=== PATIENT | male | born 1955 | race Caucasian/White ===

== ENCOUNTER 2016-11-19 10:30 | Inpatient (IN) | payer OTHER ==
[~2016-11-19] VITALS: Ht 185.4 cm; Wt 140.2 kg
[2016-11-20] MEDS ORDERED: TRAM150C6 PO (07:43)
[2016-11-20] MEDS ORDERED: TRIL135C PO (07:43)
[2016-11-20] MEDS ORDERED: TOPI1TAB97 PO (07:43)
[2016-11-20] MEDS ORDERED: OMEG1CAP53 PO (07:43)
[2016-11-20] MEDS ORDERED: VESI10TA PO (07:43)
[2016-11-20] MEDS ORDERED: LORA-474 PO (07:43)
[2016-11-20] MEDS ORDERED: CELE200C PO (07:43)
[2016-11-20] MEDS ORDERED: CENTTAB PO (07:43)
[2016-11-20] MEDS ORDERED: curamed (07:43)
[2016-11-20] MEDS ORDERED: LIDO5DIS35 TOPICAL (07:43)
[2016-11-20] MEDS ORDERED: LEXA20TA PO (07:43)
[2016-11-20] MEDS ORDERED: CHOL1CHW5 CHEW (07:43)
[2016-11-20] MEDS ORDERED: ARIC10TA PO (07:43)
[2016-11-20] MEDS ORDERED: MILK1CAP PO (07:43)
[2016-11-20] MEDS ORDERED: BENA25CA4 PO (07:43)
[2016-11-20] MEDS ORDERED: ZETI10TA5 PO (07:43)
[2016-11-20] MEDS ORDERED: EXAL8TAB PO (07:43)
[2016-11-20] MEDS ORDERED: [UNRECOGNIZED DRUG - OTHER] (07:43)
[2016-11-20] MEDS ORDERED: OXYC-433 PO (07:43)
[2016-11-20] MEDS ORDERED: LYRI150C PO (07:43)
[2016-11-20] MEDS ORDERED: PRIL20CA9 PO (07:43)
[2016-11-20] MEDS ORDERED: MELA3TAB PO (07:49)
[2016-11-20] MEDS ORDERED: META0.52 (07:49)
[2016-11-24] MEDS ORDERED: OSTETAB3 PO (09:36)
[2016-11-24] MEDS ORDERED: ESTE500T7 PO (09:37)
[2016-12-05] MEDS ORDERED: [UNRECOGNIZED DRUG - CODE] TOPICAL (11:03)
[2016-12-05] MEDS ORDERED: LEVO75TA3 PO (11:03)
[2016-12-05] MEDS ORDERED: NAME10TA PO (11:03)
[2016-12-15] MEDS ORDERED: ceFAZolin 2 GM PREMIX 50 ML ONE (05:45)
[2016-12-15] MEDS: SODIUM CHLORID 0.9% 500 ML IV SCH ×2 (06:00→22:40)
[2016-12-15] MEDS: LACTATED RINGER'S 1000 ML IV SCH (06:00)
[2016-12-15] MEDS ORDERED: OMEG1CAP53 PO (06:14)
[2016-12-15] MEDS ORDERED: HYDR-3583 PO (06:14)
[2016-12-15] MEDS ORDERED: TRIL135C PO (06:14)
[2016-12-15] MEDS ORDERED: LEVO.075 PO (06:14)
[2016-12-15] MEDS: CHLORHEXIDINE GLUCONATE 4% SOLN 120 ML BTL TOP SCH (06:15)
[2016-12-15] MEDS ORDERED: ceFAZolin 2 GM PREMIX 50 ML IV SCH (06:15)
[2016-12-15] MEDS ORDERED: INSULIN HUMAN REGULAR 1,000 UNITS/10 ML VIAL SQ PRN (06:15)
[2016-12-15] MEDS ORDERED: METOPROLOL TARTRATE 25 MG TAB PO PRN (06:15)
[2016-12-15] MEDS ORDERED: CENTTAB PO (06:21)
[2016-12-15] MEDS ORDERED: ESTE500T PO (06:21)
[2016-12-15] MEDS ORDERED: VITA2000 PO (06:21)
[2016-12-15] MEDS ORDERED: META0.52 PO (06:21)
[2016-12-15 06:24] VITALS: BP 157/90; PULSE 59; RESP 20; TEMP 97.9; O2SAT 94
[2016-12-15] MEDS ORDERED: MIDAZOLAM HCL 5 MG/5 ML VIAL ONE (06:45)
[2016-12-15] MEDS ORDERED: ACETAMINOPHEN 1000 MG/100 ML VIAL IV ONE (06:48)
[2016-12-15] MEDS ORDERED: FAMOTIDINE 20 MG/2 ML VIAL ONE (06:48)
[2016-12-15] MEDS ORDERED: fentaNYL CITRATE 250 MCG/5 ML AMP ONE (06:49)
[2016-12-15] MEDS ORDERED: HYDROmorphone HCL PF 2 MG/ML VIAL ONE (06:49)
[2016-12-15] MEDS ORDERED: DEXAMETHASONE SOD PHOS 4 MG/ML VIAL ONE (06:49)
[2016-12-15] MEDS: TRANEXAMIC ACID IV SCH ×2 (07:00→07:29)
[2016-12-15] MEDS: SODIUM CHLORIDE 0.9% IV SCH ×2 (07:00→07:29)
[2016-12-15] MEDS: EXPAREL PERI-ARTICULAR INJECTION (TOTAL VOL. 100 ML) P-ARTICULR SCH ×4 (07:00→07:39)
[2016-12-15] MEDS ORDERED: KETAMINE HCL 500 MG/5 ML VIAL ONE (07:09)
[2016-12-15] MEDS ORDERED: GENTAMICIN SULFATE 80 MG/2 ML VIAL IRRIGATION ONE (07:39)
[2016-12-15] MEDS ORDERED: SODIUM CHLORIDE 0.9% IV SCH ×2 (10:00→11:00)
[2016-12-15] MEDS ORDERED: TRANEXAMIC ACID IV SCH ×2 (10:00→11:00)
[2016-12-15] MEDS ORDERED: CAPSAICIN TOPICAL PRN (11:00)
[2016-12-15] MEDS ORDERED: Post-op Orders (for Pharmacy) MISC XX ONE (11:00)
[2016-12-15] MEDS ORDERED: MENTHOL TOPICAL PRN (11:00)
[2016-12-15] MEDS ORDERED: LIDOCAINE TOPICAL PRN (11:00)
[2016-12-15] MEDS ORDERED: SODIUM CHLORIDE 0.9% FLUSH 5 ML FLUSH IVF PRN (11:00)
[2016-12-15] MEDS ORDERED: ZOLPIDEM TARTRATE 5 MG TAB PO PRN (11:00)
[2016-12-15] MEDS ORDERED: [UNRECOGNIZED DRUG - OTHER] TOPICAL PRN (11:00)
[2016-12-15] MEDS ORDERED: ONDANSETRON HCL 4 MG/2 ML VIAL IVP PRN (11:00)
[2016-12-15] MEDS ORDERED: MAGNESIUM HYDROXIDE SUSP 30 ML CUP PO PRN (11:00)
[2016-12-15] MEDS ORDERED: MORPHINE SULFATE 4 MG/ML INJ IV PUSH PRN (11:00)
[2016-12-15] MEDS ORDERED: ACETAMINOPHEN/HYDROcodone 325 MG/7.5 MG TAB PO PRN (11:00)
[2016-12-15] MEDS ORDERED: METHYL SALICYLATE TOPICAL PRN (11:00)
[2016-12-15] MEDS ORDERED: *morphine SULFATE 8 MG/ML PERIprocedure ONLY ONE ×3 (11:19→11:29)
[2016-12-15] MEDS: LACTATED RINGER'S 1000 ML INJ 1,000 ML IV SCH ×2 (11:21→23:56)
[2016-12-15] MEDS: KETOROLAC TROMETHAMINE 30 MG/ML (IVP) VIAL IVP SCH ×3 (11:32→23:56)
[2016-12-15] MEDS ORDERED: DO NOT ADM ANY ANTICOAGULANT DRUGS XX PRN (11:45)
[2016-12-15 12:10] VITALS: BP 122/78; PULSE 93; RESP 18; TEMP 96; O2SAT 94
[2016-12-15] MEDS ORDERED: NEOSTIGMINE 3 MG/3 ML SYR IV ONE (12:27)
[2016-12-15] MEDS ORDERED: PROPOFOL 200 MG/20 ML AMP IV ONE (12:27)
[2016-12-15] MEDS ORDERED: ONDANSETRON HCL 4 MG/2 ML VIAL IV PUSH ONE (12:27)
[2016-12-15] MEDS ORDERED: LACTATED RINGER'S 1000 ML INJ 1,000 ML IV ONE (12:27)
--- NOTE | 2016-12-15 12:30 | RADRPT ---
EXAM DATE/TIME: 12/15/2016 11:01 [facility] COMPARISON: No previous studies available for comparison. INDICATIONS : Post op left knee replacement surgery MEDICAL HISTORY : None. SURGICAL HISTORY : None. ENCOUNTER: Initial ACUITY: 1 day PAIN SCORE: Non-responsive. LOCATION: Left knee FINDINGS: AP and lateral views of the knee following arthroplasty reveals a prosthesis in anatomic alignment. F racture is not appreciated. Surgical drain is evident CONCLUSION: Status post total knee arthroplasty. Barak Rascon MD FACR Board Certified Radiologist. This report was verified electronically.
[2016-12-15] MEDS ORDERED: BUPIVACAINE HCL PF 0.5% 30 ML VIAL NB ONE (12:33)
[2016-12-15] MEDS: ACETAMINOPHEN/HYDROcodone 325 MG/7.5 MG TAB PO PRN ×2 (13:37→17:39)
[2016-12-15] MEDS: PREGABALIN 75 MG CAP PO SCH ×3 (13:38→23:56)
--- NOTE | 2016-12-15 15:12 | PD.CONS ---
HPI Service [facility] Consult Requested By Dr. 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 Patient has history of OA, was admitted for elective surgery. Patient underwent left total knee arthroplasty per Dr. Mccarty. Hospitalist services are requested for medical management. Patient awakes to voice, indicates pain is well-controlled at this time. Denies any shortness of breath , no wheezing. Patient is not on any oxygen at home, indicates he follows up regularly with Dr. Savage. Occasionally uses inhaler for wheezing. Patient's oncologist is Dr. Cardenas, HL is in remission. He recently had port removed. ( Alana Hope) Review of Systems Constitutional: DENIES: Diaphoretic episodes, Fatigue, Fever, Weight gain, Weight loss, Chills, Dizziness, Change in appetite, Night Sweats Endocrine: DENIES: Heat/cold intolerance, Polydipsia, Polyuria, Polyphagia Ears, nose, mouth, throat: DENIES: Tinnitus, Hearing loss, Vertigo, Nasal discharge, Oral lesions, Throat pain, Hoarseness, Ear Pain, Running Nose, Epistaxis, Sinus Pain, Toothache, Odynophagia Cardiovascular: DENIES: Chest pain, Palpitations, Syncope, Dyspnea on Exertion , PND, Lower Extremity Edema, Orthopnea, Claudication Gastrointestinal: DENIES: Abdominal pain, Black stools, Bloody stools, Constipation, Diarrhea, Nausea, Vomiting, Difficulty Swallowing, Anorexia Genitourinary: DENIES: Sexual dysfunction, Urinary frequency, Urinary incontinence, Urgency, Hematuria, Dysuria, Nocturia, Penile Discharge, Testicular Pain, Testicular Swelling Musculoskeletal: COMPLAINS OF: Joint pain, DENIES: Muscle aches, Stiffness, Joint Swelling, Back pain, Neck pain Integumentary: DENIES: Abnormal pigmentation, Nail changes, Pruritus, Rash Hematologic/lymphatic: DENIES: Bruising, Lymphadenopathy Immunologic/allergic: DENIES: Eczema, Urticaria Neurologic: DENIES: Abnormal gait, Headache, Localized weakness, Paresthesias, Seizures, Speech Problems, Tremor, Poor Balance Psychiatric: DENIES: Anxiety, Confusion, Mood changes, Depression, Hallucinations, Agitation, Suicidal Ideation, Homicidal Ideation, Delusions ( Alana Hope) Past Family Social History Past Medical History Hodgkin's lymphoma, status post chemotherapy and stem cell transplant 2007 at [facility] History of hypertension, no longer taking medications as blood pressure has been stable Hyperlipidemia 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 Savage Prior tobacco abuse Peripheral neuropathy Cognitive deficits, secondary to chemotherapy Depression Past Surgical History Lymph node biopsy 2006 Right groin biopsy in 2011 Right carpal tunnel release 2013 Port placement and subsequent removal Hernia surgery in 1983 Colonoscopy Reported Medications Reported Meds & Active Scripts Active Reported Metamucil (Psyllium) 520 Mg Cap 2 Cap PO DAILY Vitamin D3 (Cholecalciferol) 2,000 Unit Cap 2,000 Units PO BID Centrum Silver (Multiple Vitamins W/ Minerals) 1 Tab 1 Tab PO DAILY Trilipix (Choline Fenofibrate DR) 135 Mg Capdr 135 Mg PO DAILY Lovaza (Huvmz-1-Wrud Ethyl Esters) 1 Gm Cap 2 Gm PO BID Synthroid (Levothyroxine Sodium) 75 Mcg Tab 75 Mcg PO DAILY Hydrocodone-Acetaminophen 10-325 mg Tab 1 Tab PO Q6H PRN Terocin Topical (Tyhf-Wwffxyuoy-Rosljxl-Methyl Aamir Topical) 2.5-0.025-10-25 % Lot 1 Applic TOPICAL DIRECTED PRN Namenda (Memantine) 10 Mg Tab 10 Mg PO BID Osteo Bi-Flex Regular Strength (Glucosamine-Chondroitin) 250-200 Tab 2 Tab PO DAILY Melatonin 3 Mg Tab 3 Mg PO HS Lidoderm Patch 12 HR (Lidocaine) 5% Patch 1-2 Patch TOPICAL DAILY Remove patch after 12 hours Vesicare (Solifenacin) 10 Mg Tab 10 Mg PO HS Benadryl Allergy (Diphenhydramine HCl) 25 Mg Cap 25 Mg PO HS Ativan (Lorazepam) 1 Mg Tab 1 Mg PO HS Lexapro (Escitalopram Oxalate) 20 Mg Tab 20 Mg PO DAILY Aricept (Donepezil) 10 Mg Tab 10 Mg PO HS Lyrica (Pregabalin) 150 Mg Cap 150 Mg PO Q6HR Prilosec (Omeprazole) 20 Mg Cap 20 Mg PO BID Zetia (Ezetimibe) 10 Mg Tab 10 Mg PO DAILY Celebrex (Celecoxib) 200 Mg Cap 200 Mg PO DAILY Topiramate 25 Mg Tab 25 Mg PO BID Tramadol ER 24 HR (Tramadol HCl) 150 Mg Caper 150 Mg PO BID Exalgo (Hydromorphone HCl) 8 Mg Tab 8 Mg PO DAILY (Alana Hope) Allergies: Coded Allergies: Bleomycin (Verified Allergy, Severe, PULMONARY TOXICITY, 12/05/16) Active Ordered Medications Inpatient Medications Acetaminophen/ Hydrocodone Bitart ([place] 7.5-325 Mg) 2 tab Q4H PRN PO PAIN SCALE 5 TO 10 Last administered on 12/15/16 13:37; Start 12/15/16 at 11:00 Bupivacaine Liposome 20 ml/ Sodium Chloride 100 ml @ 200 mls/hr ONCE P- ARTICULR Last administered on 12/15/16 07:39; Start 12/15/16 at 07:00; Stop at 13:00; Status DC Cefazolin Sodium/ Dextrose 50 ml @ 100 mls/hr [employer] [employer] IV ; Start 12/15/16 at 06:15; Stop 12/18/16 at 06:14 Cefazolin Sodium/ Sodium Chloride (Ancef Inj/NS Inj) 100 ml @ 200 mls/hr Q6H IV Last administered on 12/15/16 11:45; Start 12/15/16 at 12:00; Stop at 00:29 Celecoxib (CeleBREX) 200 mg DAILY PO ; Start 12/16/16 at 09:00 Chlorhexidine Gluconate 1 applic 1 applic ONCE TOP Last administered on 06:15; Start 12/15/16 at 06:15; Stop 12/18/16 at 06:14 Cholecalciferol (Vitamin D3) 2,000 units BID PO ; Start 12/15/16 at 21:00 Diphenhydramine HCl (Benadryl) 25 mg HS PO ; Start 12/15/16 at 21:00 Docusate Sodium (Colace) 100 mg BID PO ; Start 12/16/16 at 21:00 Donepezil HCl (Aricept) 10 mg HS PO ; Start 12/15/16 at 21:00 Escitalopram Oxalate (Lexapro) 20 mg DAILY PO ; Start 12/16/16 at 09:00 EZETIMIBE (Zetia) 10 mg DAILY PO ; Start 12/16/16 at 09:00 Fenofibrate (Tricor) 145 mg DAILY PO ; Start 12/16/16 at 09:00 Insulin Human Regular (NovoLIN R INJ) See Protocol Table ... UNSCH X1 PRN SQ SEE PROTOCOL; Start 12/15/16 at 06:15; Stop 12/16/16 at 06:14 IV Flush (NS Flush) 2 ml UNSCH PRN IVF FLUSH AFTER USING IV ACCESS; Start 12/15 at 11:00 IV Flush 2 ml 2 ml BID IVF ; Start 12/15/16 at 21:00 Ketorolac Tromethamine 15 mg 15 mg Q6H IVP Last administered on 12/15/16t 11:32 ; Start 12/15/16 at 12:00; Stop 12/17/16 at 06:01 Lactated Ringer's (Lr 1000 ml Inj) 1,000 ml @ 80 mls/hr [id number] IV Last administered on 12/15/16t 11:21; Start 12/15/16 at 10:46 Levothyroxine Sodium (Synthroid) 75 mcg DAILY@0600 PO ; Start 12/16/16 at 06:00 Lorazepam (Ativan) 1 mg HS PO ; Start 12/15/16 at 21:00 Magnesium Hydroxide (Milk Of Magnesia Liq) 30 ml DAILY PRN PO CONSTIPATION; Start 12/15/16 at 11:00 Memantine (Namenda) 10 mg BID PO ; Start 12/15/16 at 21:00 Metoprolol Tartrate 25 mg 25 mg UNSCH X1 PRN PO SEE LABEL COMMENTS; Start 12/15 at 06:15; Stop 12/16/16 at 06:14 Miscellaneous Information ALL NURSING DEPARTME... UNSCH PRN XX SEE LABEL COMMENTS; Start 12/15/16 at 11:45; Stop 12/16/16 at 11:44 Miscellaneous Information (Post-op Orders (for Pharmacy)) STAT ONCE XX ; Start 12/15/16 at 11:00; Stop 12/15/16 at 11:18; Status DC Morphine Sulfate (Morphine Inj) 4 mg Q3H PRN IV PUSH BREAKTHROUGH PAIN; Start 12/15/16 at 11:00 Multivitamin Hematinic Therapeutic (Theragran Hematinic) 1 tab DAILY PO ; Start 12/16/16 at 09:00 Ondansetron HCl (Zofran Inj) 4 mg Q6H PRN IVP NAUSEA OR VOMITING; Start at 11:00 Pantoprazole Sodium (Protonix) 20 mg BID PO ; Start 12/15/16 at 21:00 Pregabalin (Lyrica) 150 mg Q6HR PO Last administered on 12/15/16t 13:38; Start 12/15/16 at 12:00 Psyllium Hydrophilic Mucilloid (Metamucil Smooth Texture Sf/ Gf Pkt) 1 pkt DAILY PO ; Start 12/16/16 at 09:00 Rivaroxaban (Xarelto) 10 mg Q24H PO ; Start 12/16/16 at 10:00 Sodium Chloride (NS 500 ml Inj) 500 ml @ 30 mls/hr [id number] IV ; Start 12/15/16 at 06:00; Stop 12/16/16 at 05:59 Tolterodine Tartrate (Detrol La) 4 mg HS PO ; Start 12/15/16 at 21:00 Topiramate (Topamax) 25 mg BID PO ; Start 12/15/16 at 21:00 Tramadol HCl (Ultram) 50 mg BID PO ; Start 12/15/16 at 21:00 Tranexamic Acid 1239 mg/Sodium Chloride 112.39 ml @ 200 mls/ hr ONCE IV Last administered on 12/15/16t 10:26; Start 12/15/16 at 10:00; Stop 12/15/16 at 11:00 ; Status DC Tranexamic Acid/ Sodium Chloride (Cyklokapron Inj/ NS Inj) 112.39 ml @ 200 mls / hr UNSCH IV ; Start 12/15/16 at 11:00; Stop 12/15/16 at 11:34; Status DC Zolpidem Tartrate (Ambien) 5 mg HS PRN PO SLEEP; Start 12/15/16 at 11:00 Family History Father, , history of CAD and Alzheimer's Mother , , CAD, diabetes, breast cancer Sister, , history of [place], liver cancer, OA Social History Patient is , lives at home with . 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 Smoked many years ago, no alcohol, no substance abuse. (Alana Hope) Physical Exam Vital Signs Vital Signs Date Time Temp Pulse Resp B/P Pulse Ox O2 Delivery O2 Flow Rate FiO2 12/15/16 12:10 96.0 93 18 122/78 94 12/15/16 06:35 95 Nasal Cannula 3 12/15/16 06:24 97.9 59 20 157/90 94 Physical Exam GENERAL: This is a well-nourished, well-developed patient, in no apparent distress. SKIN: No rashes, ecchymoses or lesions. Cool and dry. HEAD: Atraumatic. Normocephalic. No temporal or scalp tenderness. EYES: Pupils equal round and reactive. Extraocular motions intact. No scleral icterus. No injection or drainage. ENT: Nose without bleeding, purulent drainage or septal hematoma. Throat without erythema, tonsillar hypertrophy or exudate. Uvula midline. Airway patent. NECK: Trachea midline. No JVD or lymphadenopathy. Supple, nontender, no meningeal signs. CARDIOVASCULAR: Regular rate and rhythm without murmurs, gallops, or rubs. RESPIRATORY: Clear, diminished at bases. Breath sounds equal bilaterally. No wheezes, rales, or rhonchi. GASTROINTESTINAL: Abdomen soft, non-tender, nondistended. No hepato-splenomegaly , or palpable masses. No guarding. MUSCULOSKELETAL: Left leg in bulky dressing, intact sensation left foot. Able to dorsiflex left foot. Has hemovac drain in place. No other joint abnormality. NEUROLOGICAL: Awakes to voice, oriented x 3. No focal deficits. Laboratory Laboratory Tests Test 12/15/16 06:12 Blood Type A POSITIVE Antibody Screen NEGATIVE Blood Bank Comment (Alana Hope) Imaging Last Impressions Knee X-Ray 12/15/16 0000 Signed Impressions: Service Date/Time: Thursday, December 15, 2016 11:01 - CONCLUSION: Status post total knee arthroplasty. Barak Rascon MD (Alana Hope) A/P Diagnosis: (1) Status post total left knee replacement (2) Primary osteoarthritis of left knee (3) History of lymphoma (4) Pulmonary fibrosis (5) Hyperlipidemia (6) Chronic back pain (7) Depression (8) Thrombocytopenia Assessment and Plan Thank you for this consultation, we will assist with medical management 61-year-old male with history of osteoarthritis, status post left total knee arthroplasty Continue with postoperative orthopedic care Xarelto for DVT prophylaxis continue pain management Bowel regimen PT, wound care per ortho Pulmonary fibrosis, stable, not oxygen dependent -Monitor sats -Duonebs PRN Thrombocytopenia -Last platelet count 122 -Monitor CBC History of Hodgkin's lymphoma, with prior stem cell transplant and chemotherapy , stable, recently had poor removed -Monitor Chronic back pain Continue with pain management Depression -Continue with home meds Cognitive deficits, from chemo. -Continue on Namenda Xarelto for DVT prophylaxis PPI for GI prophylaxis CBC and BMP in am Plan of care discussed with the patient and , attending, RN. Further management of the patient will be dependent on the hospital course This patient was seen by myself and Dr. Torres, this consultation is written on his behalf (Alana Hope) Assessment and Plan pt is seen & examined d/w PT d/w Alana gutierrez w above cont current tx thanks for the consult will f/u (Sheela Torres MD) Problem Qualifiers (1) Hyperlipidemia: Qualified Code: E78.5 - Hyperlipidemia, unspecified hyperlipidemia type (2) Chronic back pain: Qualified Code: M54.9 - Chronic back pain, unspecified back location, unspecified back pain laterality (3) Depression: Qualified Code: F32.9 - Depression, unspecified depression type Alana Hope Dec 15, 2016 15:12 Sheela Torres MD Dec 15, 2016 15:47
[2016-12-15 16:00] VITALS: BP 123/69; PULSE 78; RESP 18; TEMP 97.1; O2SAT 96
[2016-12-15] MEDS ORDERED: RESP: ALBUTEROL 2.5 MG/IPRATROPIUM 0.5 MG NEB (PRN) NEB (16:00)
[2016-12-15 20:40] VITALS: BP 108/64; PULSE 72; RESP 18; TEMP 97.1; O2SAT 95
[2016-12-15] MEDS: LORazepam 1 MG TAB PO SCH (20:47)
[2016-12-15] MEDS: diphenhydrAMINE HCL 25 MG CAP PO SCH (20:47)
[2016-12-15] MEDS: CHOLECALCIFEROL (VIT D3) 1000 UNIT TAB PO SCH (20:47)
[2016-12-15] MEDS: TOLTERODINE TARTRATE 4 MG CAP LA PO SCH (20:47)
[2016-12-15] MEDS: SODIUM CHLORIDE 0.9% FLUSH 5 ML FLUSH IVF SCH (20:47)
[2016-12-15] MEDS: DONEPEZIL HCL 5 MG TAB PO SCH (20:47)
[2016-12-15] MEDS: PANTOPRAZOLE SOD 20 MG DELAYED RELEASE TAB PO SCH (20:47)
[2016-12-15] MEDS: MEMANTINE HCL 10 MG TAB PO SCH (20:47)
[2016-12-15] MEDS: TOPIRAMATE 25 MG TAB PO SCH (20:47)
[2016-12-15] MEDS: traMADol HCL 50 MG TAB PO SCH (20:50)
[2016-12-15] MEDS ORDERED: NON-FORMULARY DRUG (Omega-3-Acid Ethyl Esters (Lovaza) 2 GM) PO SCH (21:00)
[2016-12-15] MEDS ORDERED: NON-FORMULARY DRUG (Melatonin 3 MG) PO SCH (21:00)
[2016-12-16 00:10] VITALS: BP 131/65; PULSE 66; RESP 18; TEMP 96.6; O2SAT 97
[2016-12-16 04:25] VITALS: BP 103/66; PULSE 80; RESP 18; TEMP 97.9; O2SAT 98
[2016-12-16] MEDS: ACETAMINOPHEN/HYDROcodone 325 MG/7.5 MG TAB PO PRN ×5 (04:55→22:33)
[2016-12-16] MEDS: KETOROLAC TROMETHAMINE 30 MG/ML (IVP) VIAL IVP SCH ×3 (05:40→17:35)
[2016-12-16] MEDS: LACTATED RINGER'S 1000 ML IV SCH (05:40)
[2016-12-16] MEDS: LEVOTHYROXINE SODIUM 75 MCG TAB PO SCH (05:40)
[2016-12-16] MEDS: PREGABALIN 75 MG CAP PO SCH ×3 (05:40→17:35)
[2016-12-16 06:14] LABS: MEAN CELL VOLUME 97.2 FL (80.0-100.0); MEAN CORPUSCULAR HEMOGLOBIN 32.3 PG (27.0-34.0); MEAN CORPUSCULAR HGB CONC 33.3 % (32.0-36.0); PLATELET COUNT 86 TH/MM3 (150-450); RED BLOOD COUNT 4.43 MIL/MM3 (4.50-5.90); RED CELL DISTRIBUTION WIDTH 14.5 % (11.6-17.2); WHITE BLOOD COUNT 6.4 TH/MM3 (4.0-11.0)
[2016-12-16] MEDS: CHLORHEXIDINE GLUCONATE 4% SOLN 120 ML BTL TOP SCH (06:15)
[2016-12-16 06:17] LABS: REVIEW FLAG FINAL
[2016-12-16 06:33] LABS: BICARBONATE 34.7 MEQ/L (21.0-32.0); POTASSIUM 3.7 MEQ/L (3.5-5.1)
--- NOTE | 2016-12-16 06:40 | PD.ORT.PN ---
Subjective Post Op Day #: 1 Subjective Remarks He is doing relatively well. There is some pain. Range of Motion -10 to 80 degrees. Distance Walked 30 feet. Objective Vitals Vital Signs Date Time Temp Pulse Resp B/P Pulse Ox O2 Delivery O2 Flow Rate FiO2 12/16/16 04:25 97.9 80 18 103/66 98 12/16/16 00:10 96.6 66 18 131/65 97 12/15/16 20:40 97.1 72 18 108/64 95 12/15/16 20:00 95 Nasal Cannula 2.00 12/15/16 16:00 97.1 78 18 123/69 96 12/15/16 12:10 96.0 93 18 122/78 94 12/15/16 11:45 97.8 98 13 133/79 94 Nasal Cannula 2 12/15/16 11:30 92 13 137/84 94 Nasal Cannula 2 12/15/16 11:15 96 12 149/83 95 Nasal Cannula 2 12/15/16 11:00 105 12 133/74 92 Nasal Cannula 3 12/15/16 10:47 98.0 110 10 141/77 94 Nasal Cannula 4 I/O 12/15/16 12/15/16 12/15/16 12/16/16 12/16/16 12/16/16 07:00 15:00 23:00 07:00 15:00 23:00 Intake Total 1350 ml 1938 ml 379 ml Output Total 510 ml 1410 ml 90 ml Balance 840 ml 528 ml 289 ml Intake Oral 1080 ml IV Total 50 ml 858 ml 379 ml Other 1300 ml Output Urine Total 0 ml 1225 ml Drainage Total 110 ml 185 ml 90 ml Estimated Blood Loss 400 ml # Bowel Movements 0 Result Diagram: 12/16/16 0530 12/16/16 0530 Imaging Last 72 hours Impressions Knee X-Ray 12/15/16 0000 Signed Impressions: Service Date/Time: Thursday, December 15, 2016 11:01 - CONCLUSION: Status post total knee arthroplasty. Barak Rascon MD Knee x-ray looks good. Objective Remarks He is resting comfortably, supine in bed, in the CPM. The surgical dressing is dry and intact. The neurovascular status is intact. Assessment & Plan Ortho Post Op Day #: 1 Problem List: (1) Status post total left knee replacement Plan: Continue postop care and PT. Assessment and Plan Condition: Good. Orthopaedically stable. DVT prophylaxis: FAHEEM stockings, sequentials, early mobilization and ASA. Discharge plans: Home with [facility], probably tomorrow. Has appointment. Luis Mccarty MD ([facility]) Dec 16, 2016 06:40
--- NOTE | 2016-12-16 07:00 | HHI.FF ---
Face to Face Verification Diagnosis: (1) Status post total left knee replacement Physical Therapy Knee: Total knee, Protocol: Left, Gait training, Full weight bearing Left LE Weight Bearing: WB as tolerated Left LE Range of Motion: Active ROM (AROM, AAROM, PROM,PRE. ROM goal is 0 to 125 degrees.) Nursing Nursing: Dressing changes Dressing Changes: Daily dressing change, Coverderm/Primapore Additional Instructions Remove steristrips on postop day 14. I have seen patient Dariusz Craig Jr Mara on 12/16/16. My clinical findings support the need for the requested home health care services because: Ltd mobility - disease progression Limited ability to care for self High risk of falls I certify that my clinical findings support that this patient is homebound because: Post-op weakness Unsteady gait/balance Unsafe to leave home unassisted Luis Mccarty MD ([facility]) Dec 16, 2016 07:00
[2016-12-16 08:00] VITALS: BP 126/68; PULSE 88; RESP 18; TEMP 96.5; O2SAT 95
[2016-12-16] MEDS ORDERED: HYDROMORPHONE 8 MG PO SCH (09:00)
[2016-12-16] MEDS ORDERED: GLUCOSAMINE CHONDROITIN PO SCH (09:00)
[2016-12-16] MEDS: CHOLECALCIFEROL (VIT D3) 1000 UNIT TAB PO SCH ×2 (09:00→21:11)
[2016-12-16] MEDS: MULTIVITAMIN HEMATINIC THERAPEUTIC TAB PO SCH (09:02)
[2016-12-16] MEDS: FENOFIBRATE 145 MG TAB PO SCH (09:02)
[2016-12-16] MEDS: ESCITALOPRAM OXALATE 20 MG TAB PO SCH (09:03)
[2016-12-16] MEDS: MEMANTINE HCL 10 MG TAB PO SCH ×2 (09:03→21:11)
[2016-12-16] MEDS: EZETIMIBE 10 MG TAB PO SCH (09:03)
[2016-12-16] MEDS: TOPIRAMATE 25 MG TAB PO SCH ×2 (09:03→21:12)
[2016-12-16] MEDS: ASPIRIN EC 81 MG TABEC PO SCH ×2 (09:03→21:11)
[2016-12-16] MEDS: traMADol HCL 50 MG TAB PO SCH ×2 (09:03→21:11)
[2016-12-16] MEDS: PANTOPRAZOLE SOD 20 MG DELAYED RELEASE TAB PO SCH ×2 (09:03→21:11)
[2016-12-16] MEDS: PSYLLIUM FIBER SF/GF 6 GM POWD PKT PO SCH (09:03)
[2016-12-16] MEDS: CELECOXIB 200 MG CAP PO SCH (09:03)
[2016-12-16] MEDS: SODIUM CHLORIDE 0.9% FLUSH 5 ML FLUSH IVF SCH ×2 (09:04→21:10)
[2016-12-16] MEDS ORDERED: RIVAROXABAN 10 MG TAB PO SCH (10:00)
[2016-12-16] MEDS: LACTATED RINGER'S 1000 ML INJ 1,000 ML IV SCH (11:46)
[2016-12-16 12:00] VITALS: BP 125/64; PULSE 74; RESP 18; TEMP 98; O2SAT 95
--- NOTE | 2016-12-16 12:10 | HHI.PR ---
Subjective Subjective Remarks slept fair last night no cp no sob no wheezing no n/v ate well pain well controlled still has drain in place noted some jerking of right hand, dropped glass of water has none now per , has had slight tremor of right hand in the past Review of Systems Constitutional Constitutional Remarks 12 point ROS completed, negative except as noted above Vitals/Results Intake & Output 12/15/16 12/15/16 12/16/16 15:00 23:00 07:00 Intake Total 1350 ml 1938 ml 799 ml Output Total 510 ml 1410 ml 840 ml Balance 840 ml 528 ml -41 ml Intake Oral 1080 ml 420 ml IV Total 50 ml 858 ml 379 ml Other 1300 ml Output Urine Total 0 ml 1225 ml 750 ml Drainage Total 110 ml 185 ml 90 ml Estimated Blood Loss 400 ml # Bowel Movements 0 0 Vital Signs Vital Signs Date Time Temp Pulse Resp B/P Pulse Ox O2 Delivery O2 Flow Rate FiO2 12/16/16 08:00 96.5 88 18 126/68 95 12/16/16 04:25 97.9 80 18 103/66 98 12/16/16 00:10 96.6 66 18 131/65 97 12/15/16 20:40 97.1 72 18 108/64 95 12/15/16 20:00 95 Nasal Cannula 2.00 12/15/16 16:00 97.1 78 18 123/69 96 12/15/16 12:10 96.0 93 18 122/78 94 CBC/BMP: 12/16/16 0530 12/16/16 0530 Lab Results Laboratory Tests Test 12/16/16 05:30 White Blood Count 6.4 TH/MM3 Red Blood Count 4.43 MIL/MM3 Hemoglobin 14.3 GM/DL Hematocrit 43.0 % Mean Corpuscular Volume 97.2 FL Mean Corpuscular Hemoglobin 32.3 PG Mean Corpuscular Hemoglobin 33.3 % Concent Red Cell Distribution Width 14.5 % Platelet Count 86 TH/MM3 Mean Platelet Volume 8.5 FL Sodium Level 142 MEQ/L Potassium Level 3.7 MEQ/L Chloride Level 102 MEQ/L Carbon Dioxide Level 34.7 MEQ/L Anion Gap 5 MEQ/L Blood Urea Nitrogen 13 MG/DL Creatinine 1.00 MG/DL Estimat Glomerular Filtration 76 ML/MIN Rate Random Glucose 134 MG/DL Calcium Level 8.3 MG/DL Physical Exam General General Appearance: Well Developed, Well Nourished, No Acute Distress, Comfortable Eyes Eye Exam: Pupils Equal, Pupils Reactive Ears & Nose Ears & Nose Exam: Nasal Mucosa [place] Throat Throat Exam: Oral Mucosa [place] & Moist Neck Neck Exam: Neck Supple, Trachea Midline Pulmonary Resp Exam: Clear Bilaterally, No Distress Cardiology CV Exam: Regular, Normal Sinus Rhythm, Good Perfusion Gastrointestinal/Abdomen GI Exam: Soft, Non-Tender, Bowel Sounds Present, Non-Distended Musculoskeletal MS Remarks Left knee with bulky dressing D/I, hemovac in place Integumentary Skin Exam: Warm, Dry Extremeties Extremities Exam: Pedal Pulses Palpable, Trace Edema Neurologic Neuro Exam: Alert, Awake, Oriented, Speech Clear, Ratchet Setter Equal Psychiatric Psych Exam: Appropriate Responses VTE Prophylaxis VTE Prophylaxis Device: SCDs VTE Remarks ASA Assessment/Plan Problem List: (1) Primary osteoarthritis of left knee (2) Status post total left knee replacement (3) Thrombocytopenia (4) Chronic back pain (5) Depression (6) History of lymphoma (7) Hyperlipidemia (8) Pulmonary fibrosis Assessment/Plan 61-year-old male with history of osteoarthritis, status post left total knee arthroplasty Continue with postoperative orthopedic care Xarelto dc per ortho, started on ASA continue pain management Bowel regimen PT, wound care per ortho Pulmonary fibrosis, stable, not oxygen dependent -Monitor sats -Duonebs PRN Thrombocytopenia -Last platelet count 122, today 86,000 -Monitor CBC History of Hodgkin's lymphoma, with prior stem cell transplant and chemotherapy , stable, recently had poor removed -Monitor Chronic back pain Continue with pain management Depression -Continue with home meds Cognitive deficits, from chemo. -Continue on Namenda Right hand jerking, now resolved, ? anesthesia -continue to monitor, if it persists, will check EEG ASA/teds for DVT prophylaxis PPI for GI prophylaxis Labs reviewed, HH stable D/W RN D/W pt, D/W Dr. Torres This patient was seen by myself and Dr. Torres, this note is written on his behalf Problem Qualifiers (1) Chronic back pain: Qualified Code: M54.9 - Chronic back pain, unspecified back location, unspecified back pain laterality (2) Depression: Qualified Code: F32.9 - Depression, unspecified depression type (3) Hyperlipidemia: Qualified Code: E78.5 - Hyperlipidemia, unspecified hyperlipidemia type Alana Hope Dec 16, 2016 12:10
[2016-12-16 16:00] VITALS: BP 141/65; PULSE 76; RESP 16; TEMP 97.5; O2SAT 93
[2016-12-16 20:00] VITALS: BP 145/76; PULSE 79; RESP 20; TEMP 98.3; O2SAT 92
[2016-12-16] MEDS: DONEPEZIL HCL 5 MG TAB PO SCH (21:12)
[2016-12-16] MEDS: DOCUSATE SODIUM 100 MG CAP PO SCH (21:12)
[2016-12-16] MEDS: TOLTERODINE TARTRATE 4 MG CAP LA PO SCH (21:12)
[2016-12-16] MEDS: LORazepam 1 MG TAB PO SCH (21:12)
[2016-12-16] MEDS: diphenhydrAMINE HCL 25 MG CAP PO SCH (21:12)
--- NOTE | 2016-12-16 22:03 | RADRPT ---
EXAM DATE/TIME: 12/16/2016 21:28 [facility] COMPARISON: No previous studies available for comparison. INDICATIONS : Right hand weakness; possible seizure. RADIATION DOSE: 55.87 CTDIvol (mGy) MEDICAL HISTORY : Lymphoma. Thrombocytopenia. SURGICAL HISTORY : None. ENCOUNTER: Initial ACUITY: 1 day PAIN SCALE: 0/10 LOCATION: cranial TECHNIQUE: Multiple contiguous axial images were obtained of the head. Using automated exposure control and adj ustment of the mA and/or kV according to patient size, radiation dose was kept as low as reasonably a chievable to obtain optimal diagnostic quality images. FINDINGS: CEREBRUM: The ventricles are normal for age. No evidence of midline shift, mass lesion, hemorrhage or acute in farction. No extra-axial fluid collections are seen. POSTERIOR FOSSA: The cerebellum and brainstem are intact. The 4th ventricle is midline. The cerebellopontine angle i s unremarkable. EXTRACRANIAL: The visualized portion of the orbits is intact. SKULL: The calvaria is intact. No evidence of skull fracture. CONCLUSION: Normal examination. Davidson Sal Jr., MD on December 16, 2016 at 22:01 Board Certified Radiologist. This report was verified electronically.
[2016-12-17] VITALS (7 sets, daily range): BP systolic 131–173; BP diastolic 63–83; PULSE 74–84; RESP 16–20; TEMP 95.8–99.1; O2SAT 93–96
[2016-12-17] MEDS: LACTATED RINGER'S 1000 ML INJ 1,000 ML IV SCH ×2 (00:16→11:23)
[2016-12-17] MEDS: PREGABALIN 75 MG CAP PO SCH ×5 (00:36→23:50)
[2016-12-17] MEDS: KETOROLAC TROMETHAMINE 30 MG/ML (IVP) VIAL IVP SCH ×2 (00:36→06:03)
[2016-12-17] MEDS: LACTATED RINGER'S 1000 ML IV SCH (06:00)
[2016-12-17] MEDS: LEVOTHYROXINE SODIUM 75 MCG TAB PO SCH (06:04)
[2016-12-17] MEDS: ACETAMINOPHEN/HYDROcodone 325 MG/7.5 MG TAB PO PRN ×4 (06:04→18:39)
[2016-12-17] MEDS: CHLORHEXIDINE GLUCONATE 4% SOLN 120 ML BTL TOP SCH (06:15)
--- NOTE | 2016-12-17 07:21 | PD.ORT.PN ---
Subjective Post Op Day #: 2 Subjective Remarks He is doing relatively well. There is still some pain. He attended the class. Range of Motion 0 to 90 degrees. Distance Walked 20 feet with PT. Objective Vitals Vital Signs Date Time Temp Pulse Resp B/P Pulse Ox O2 Delivery O2 Flow Rate FiO2 12/17/16 04:00 98.0 84 20 131/70 94 12/17/16 00:00 97.5 83 20 160/83 93 12/16/16 20:00 92 Room Air 12/16/16 20:00 98.3 79 20 145/76 92 12/16/16 16:00 97.5 76 16 141/65 93 12/16/16 12:00 98.0 74 18 125/64 95 12/16/16 08:15 94 Room Air 12/16/16 08:00 96.5 88 18 126/68 95 I/O 12/16/16 12/16/16 12/16/16 12/17/16 12/17/16 12/17/16 07:00 15:00 23:00 07:00 15:00 23:00 Intake Total 799 ml 824 ml 1180 ml Output Total 840 ml 1150 ml 20 ml 500 ml Balance -41 ml -326 ml -20 ml 680 ml Intake Oral 420 ml 480 ml 1180 ml IV Total 379 ml 344 ml Output Urine Total 750 ml 1100 ml 500 ml Drainage Total 90 ml 50 ml 20 ml # Voids 3 # Bowel Movements 0 0 0 Result Diagram: 12/16/16 0530 12/16/16 0530 Imaging Last 72 hours Impressions Knee X-Ray 12/15/16 0000 Signed Impressions: Service Date/Time: Thursday, December 15, 2016 11:01 - CONCLUSION: Status post total knee arthroplasty. Barak Rascon MD Knee x-ray looks good. Objective Remarks He is resting comfortably, supine in bed. The dressing is dry and intact. There is no erythema or induration. The neurovascular status is intact. Assessment & Plan Problem List: (1) Status post total left knee replacement Plan: Continue postop care and PT. Assessment and Plan Condition: Good. Orthopaedically stable. DVT prophylaxis: FAHEEM stockings, sequentials, early mobilization and ASA. Discharge plans: Home with [facility], probably tomorrow. Has appointment. Luis Mccarty MD ([place]) Dec 17, 2016 07:21
[2016-12-17] MEDS ORDERED: WALKER WHEELS/F1 MIS (07:56)
[2016-12-17] MEDS ORDERED: CPMMACHINE (07:56)
[2016-12-17] MEDS ORDERED: MISC-163 (07:56)
[2016-12-17 08:31] LABS: BASOPHIL % 0.8 % (0.0-2.0); EOSINOPHIL # 0.1 TH/MM3 (0-0.4); HEMATOCRIT 39.6 % (39.0-51.0); LYMPH % 19.9 % (9.0-44.0); LYMPHOCYTE # 0.9 TH/MM3 (1.0-4.8); MEAN CELL VOLUME 98.4 FL (80.0-100.0); MEAN CORPUSCULAR HEMOGLOBIN 32.2 PG (27.0-34.0); MEAN CORPUSCULAR HGB CONC 32.7 % (32.0-36.0); MONO % 13.6 % (0.0-8.0); NEUT % 63.7 % (16.0-70.0); PLATELET COUNT 86 TH/MM3 (150-450); RED BLOOD COUNT 4.02 MIL/MM3 (4.50-5.90); RED CELL DISTRIBUTION WIDTH 14.5 % (11.6-17.2); WHITE BLOOD COUNT 4.7 TH/MM3 (4.0-11.0)
[2016-12-17 08:33] LABS: HEMO FLAGS AUTO DIFF
[2016-12-17] MEDS: PSYLLIUM FIBER SF/GF 6 GM POWD PKT PO SCH (09:00)
[2016-12-17 09:46] LABS: PLATELET ESTIMATE SMEAR LOW (NORMAL); PLATELET MORPHOLOGY NORMAL (NORMAL); SCAN/DIFF AUTO DIFF CONFIRMED
[2016-12-17] MEDS: ASPIRIN EC 81 MG TABEC PO SCH ×2 (10:27→21:06)
[2016-12-17] MEDS: MULTIVITAMIN HEMATINIC THERAPEUTIC TAB PO SCH (10:27)
[2016-12-17] MEDS: CHOLECALCIFEROL (VIT D3) 1000 UNIT TAB PO SCH ×2 (10:28→21:05)
[2016-12-17] MEDS: DOCUSATE SODIUM 100 MG CAP PO SCH ×2 (10:28→21:05)
[2016-12-17] MEDS: traMADol HCL 50 MG TAB PO SCH ×2 (10:28→21:06)
[2016-12-17] MEDS: PANTOPRAZOLE SOD 20 MG DELAYED RELEASE TAB PO SCH ×2 (10:28→21:00)
[2016-12-17] MEDS: MEMANTINE HCL 10 MG TAB PO SCH ×2 (10:28→21:05)
[2016-12-17] MEDS: CELECOXIB 200 MG CAP PO SCH (10:28)
[2016-12-17] MEDS: FENOFIBRATE 145 MG TAB PO SCH (10:28)
[2016-12-17] MEDS: TOPIRAMATE 25 MG TAB PO SCH ×2 (10:28→21:06)
[2016-12-17] MEDS: EZETIMIBE 10 MG TAB PO SCH (10:28)
[2016-12-17] MEDS: SODIUM CHLORIDE 0.9% FLUSH 5 ML FLUSH IVF SCH ×2 (10:29→21:00)
[2016-12-17] MEDS: ESCITALOPRAM OXALATE 20 MG TAB PO SCH (10:29)
--- NOTE | 2016-12-17 11:19 | HHI.PR ---
Subjective History of Present Illness I am ok pain is in control Pain medications are helping No nausea or vomiting Good appetite no fever or chills No chest pain or shortness of breath Chronic back pain offers no other complaints is at bedside Vitals/Results Intake & Output 12/16/16 12/16/16 12/17/16 15:00 23:00 07:00 Intake Total 824 ml 1180 ml Output Total 1150 ml 20 ml 500 ml Balance -326 ml -20 ml 680 ml Intake Oral 480 ml 1180 ml IV Total 344 ml Output Urine Total 1100 ml 500 ml Drainage Total 50 ml 20 ml # Voids 3 # Bowel Movements 0 0 Vital Signs Vital Signs Date Time Temp Pulse Resp B/P Pulse Ox O2 Delivery O2 Flow Rate FiO2 12/17/16 04:00 98.0 84 20 131/70 94 12/17/16 00:00 97.5 83 20 160/83 93 12/16/16 20:00 92 Room Air 12/16/16 20:00 98.3 79 20 145/76 92 12/16/16 16:00 97.5 76 16 141/65 93 12/16/16 12:00 98.0 74 18 125/64 95 CBC/BMP: 12/17/16 0757 12/16/16 0530 Lab Results Laboratory Tests Test 12/17/16 07:57 White Blood Count 4.7 TH/MM3 Red Blood Count 4.02 MIL/MM3 Hemoglobin 12.9 GM/DL Hematocrit 39.6 % Mean Corpuscular Volume 98.4 FL Mean Corpuscular Hemoglobin 32.2 PG Mean Corpuscular Hemoglobin 32.7 % Concent Red Cell Distribution Width 14.5 % Platelet Count 86 TH/MM3 Mean Platelet Volume 7.9 FL Neutrophils (%) (Auto) 63.7 % Lymphocytes (%) (Auto) 19.9 % Monocytes (%) (Auto) 13.6 % Eosinophils (%) (Auto) 2.0 % Basophils (%) (Auto) 0.8 % Neutrophils # (Auto) 3.0 TH/MM3 Lymphocytes # (Auto) 0.9 TH/MM3 Monocytes # (Auto) 0.6 TH/MM3 Eosinophils # (Auto) 0.1 TH/MM3 Basophils # (Auto) 0.0 TH/MM3 CBC Comment AUTO DIFF Differential Comment AUTO DIFF CONFIRMED Platelet Estimate LOW Platelet Morphology Comment NORMAL Physical Exam General General Appearance: Well Developed, Well Nourished, No Acute Distress, Comfortable, Obese Eyes Eye Exam: Pupils Equal, Sclera White, Extraocular Movement Intact Ears & Nose Ears & Nose Exam: Nasal Mucosa [place] Throat Throat Exam: Oral Mucosa [place] & Moist Neck Neck Exam: Neck Supple, Trachea Midline Pulmonary Resp Exam: Clear Bilaterally, Breath Sounds Equal, No Distress Cardiology CV Exam: Regular, Normal Sinus Rhythm, Good Perfusion Gastrointestinal/Abdomen GI Exam: Soft, Non-Tender, Bowel Sounds Present Musculoskeletal MS Remarks Left knee dressing intact Integumentary Skin Exam: Warm, Dry Extremeties Extremities Exam: Pedal Pulses Palpable Neurologic Neuro Exam: Alert, Awake, Oriented, Speech Clear, Moving All Extremities, Health And Safety Advisor Equal Psychiatric Psych Exam: Appropriate Responses VTE Prophylaxis VTE Prophylaxis Device: SCDs Assessment/Plan Problem List: (1) Primary osteoarthritis of left knee (2) Status post total left knee replacement (3) Thrombocytopenia (4) Chronic back pain (5) Depression (6) History of lymphoma (7) Hyperlipidemia (8) Pulmonary fibrosis Assessment/Plan 61-year-old male with history of osteoarthritis, status post left total knee arthroplasty Continue with postoperative orthopedic care DVT prophylaxis per orthopedic ,Xarelto dc per ortho, started on ASA -Discussed risk and benefits with patient and his in detail, they verbalized understanding continue pain management Bowel regimen PT, wound care per ortho Pulmonary fibrosis, stable, not oxygen dependent -Monitor sats -Duonebs PRN ch Thrombocytopenia -Last platelet count 86,000 stable -Monitor CBC History of Hodgkin's lymphoma, with prior stem cell transplant and chemotherapy , stable, recently had poor removed -Monitor Chronic back pain Continue with pain management Depression -Continue with home meds Cognitive deficits, from chemo. -Continue on Namenda Right hand jerking, now resolved, ? anesthesia -CT head, negative -continue to monitor, if it persists, will check EEG ASA/teds for DVT prophylaxis PPI for GI prophylaxis D/W pt, SS for discharge planning/will sign off/available when necessary Problem Qualifiers (1) Chronic back pain: Qualified Code: M54.9 - Chronic back pain, unspecified back location, unspecified back pain laterality (2) Depression: Qualified Code: F32.9 - Depression, unspecified depression type (3) Hyperlipidemia: Qualified Code: E78.5 - Hyperlipidemia, unspecified hyperlipidemia type Sheela Torres MD Dec 17, 2016 11:19
[2016-12-17] MEDS: diphenhydrAMINE HCL 25 MG CAP PO SCH (21:05)
[2016-12-17] MEDS: DONEPEZIL HCL 5 MG TAB PO SCH (21:05)
[2016-12-17] MEDS: TOLTERODINE TARTRATE 4 MG CAP LA PO SCH (21:05)
[2016-12-17] MEDS: LORazepam 1 MG TAB PO SCH (21:06)
[2016-12-18] MEDS: LACTATED RINGER'S 1000 ML INJ 1,000 ML IV SCH ×2 (01:16→08:55)
[2016-12-18 04:00] VITALS: BP 146/72; PULSE 81; RESP 16; TEMP 96; O2SAT 93
[2016-12-18] MEDS: LEVOTHYROXINE SODIUM 75 MCG TAB PO SCH (05:42)
[2016-12-18] MEDS: LACTATED RINGER'S 1000 ML IV SCH (05:43)
[2016-12-18] MEDS: ACETAMINOPHEN/HYDROcodone 325 MG/7.5 MG TAB PO PRN ×3 (05:43→12:11)
[2016-12-18] MEDS: PREGABALIN 75 MG CAP PO SCH ×2 (05:43→11:19)
--- NOTE | 2016-12-18 06:49 | PD.ORT.PN ---
Subjective Post Op Day #: 3 Subjective Remarks He is still doing relatively well. There is some pain. He attended the class. Range of Motion -3 to 93 degrees. Distance Walked 70 feet with PT. Objective Vitals Vital Signs Date Time Temp Pulse Resp B/P Pulse Ox O2 Delivery O2 Flow Rate FiO2 12/18/16 04:00 96.0 81 16 146/72 93 12/17/16 23:36 99.1 81 17 140/80 93 12/17/16 19:00 96.8 74 17 173/79 96 12/17/16 16:00 97.5 79 18 143/75 93 12/17/16 12:00 97.3 74 17 142/71 93 12/17/16 08:00 95.8 79 16 134/63 94 I/O 12/17/16 12/17/16 12/17/16 12/18/16 12/18/16 12/18/16 07:00 15:00 23:00 07:00 15:00 23:00 Intake Total 1180 ml 960 ml 480 ml 480 ml Output Total 500 ml 0 ml Balance 680 ml 960 ml 480 ml 480 ml Intake Oral 1180 ml 960 ml 480 ml 480 ml Output Urine Total 500 ml 0 ml # Voids 3 4 2 3 # Bowel Movements 0 1 0 0 Result Diagram: 12/17/16 0757 12/16/16 0530 Imaging Last 72 hours Impressions Knee X-Ray 12/15/16 0000 Signed Impressions: Service Date/Time: Thursday, December 15, 2016 11:01 - CONCLUSION: Status post total knee arthroplasty. Barak Rsacon MD Knee x-ray looks good. Objective Remarks He is resting comfortably, supine in bed in the CPM. The dressing is dry and intact. There is no erythema or induration. The neurovascular status is intact. Assessment & Plan Ortho Post Op Day #: 3 Problem List: (1) Status post total left knee replacement Plan: Continue postop care and PT. Assessment and Plan Condition: Good. Orthopaedically stable. DVT prophylaxis: FAHEEM stockings, sequentials, early mobilization and ASA. Discharge plans: Home with [facility], probably today. Has appointment. [place] 7.5/325 Luis Mccarty MD (Charles) Dec 18, 2016 06:49
[2016-12-18] MEDS ORDERED: HYDR-3580 PO (07:23)
[2016-12-18] MEDS ORDERED: ASPI81TA11 PO (07:23)
[2016-12-18 08:00] VITALS: BP 120/63; PULSE 88; RESP 18; TEMP 97.8; O2SAT 96
[2016-12-18] MEDS: SODIUM CHLORIDE 0.9% FLUSH 5 ML FLUSH IVF SCH (08:54)
[2016-12-18] MEDS: PANTOPRAZOLE SOD 20 MG DELAYED RELEASE TAB PO SCH (08:57)
[2016-12-18] MEDS: traMADol HCL 50 MG TAB PO SCH (08:57)
[2016-12-18] MEDS: EZETIMIBE 10 MG TAB PO SCH (08:57)
[2016-12-18] MEDS: MEMANTINE HCL 10 MG TAB PO SCH (08:57)
[2016-12-18] MEDS: DOCUSATE SODIUM 100 MG CAP PO SCH (08:57)
[2016-12-18] MEDS: CHOLECALCIFEROL (VIT D3) 1000 UNIT TAB PO SCH (08:58)
[2016-12-18] MEDS: MULTIVITAMIN HEMATINIC THERAPEUTIC TAB PO SCH (08:58)
[2016-12-18] MEDS: FENOFIBRATE 145 MG TAB PO SCH (08:58)
[2016-12-18] MEDS: ASPIRIN EC 81 MG TABEC PO SCH (08:58)
[2016-12-18] MEDS: PSYLLIUM FIBER SF/GF 6 GM POWD PKT PO SCH (08:58)
[2016-12-18] MEDS: TOPIRAMATE 25 MG TAB PO SCH (08:58)
[2016-12-18] MEDS: ESCITALOPRAM OXALATE 20 MG TAB PO SCH (08:58)
[2016-12-18] MEDS: CELECOXIB 200 MG CAP PO SCH (08:59)
[2016-12-18 12:00] VITALS: BP 134/94; PULSE 73; RESP 18; TEMP 97; O2SAT 95
--- NOTE | 2016-12-18 13:43 | MP ---
cc: Helder DEXTER. DATE OF SURGERY: 12/15/2016 PREOPERATIVE DIAGNOSIS Primary osteoarthritis, left knee. POSTOPERATIVE DIAGNOSIS Primary osteoarthritis, left knee. OPERATION PERFORMED Left total knee arthroplasty with [place] triathlon prosthesis (cemented). SURGEON Luis Dexter MD ANESTHESIA General by LMA with supplemental local and supplemental adductor canal block regional. INDICATIONS AND FINDINGS This 61-year-old man has had left knee pain for about 5 years which has progressively worsened. He has an ambulation tolerance of 15 minutes at this point. He has pain ascending and descending stairs and standing from a seated position. He has difficulty extending the left knee. He has been treated with nonsteroidal anti-inflammatory agents, currently Celebrex, analgesics, activity modification, exercises, Synvisc injections, intra-articular corticosteroid injections, the use of ambulatory aids. He has not responded to this. He is currently on pain management for another condition. Physical findings showed some genu varum with crepitation throughout the entire range, palpable medial osteophytes and medial laxity with tenderness in the medial compartment. There is a small effusion. There is crepitation on motion. X-rays show loss of articular cartilage to [id number] in the medial compartment with subchondral sclerosis and osteophytes that are tricompartmental. Operative findings showed severe osteoarthritis particularly in the medial compartment but also patellofemoral. Extension was blocked by a bony osteophyte that impinged onto the femur from the tibia. There was large loose body posterior medially. Prosthesis used was a [place] triathlon prosthesis with the femur being a size 8 cemented, the tibia being a size 8 cemented with a 9 mm spacer and the patella being a size 38 cemented patella. The cement used was simplex. PROCEDURE The patient had an adductor canal block carried out preoperatively. He was transferred to the clean-air operating suite where general endotracheal anesthetic was administered. He was placed into a supine position on the operating table with a small bolster under the left hip. Pneumatic tourniquet was applied to the left thigh. The limb was then prepped with alcohol, Hibiclens and Chloraprep and draped in the usual manner with the knee draped free. An appropriate time-out procedure was carried out. Local anesthesia was administered in the incision site prior to making the incision. Incision was made from three fingerbreadths above the superior medial pole of patella down to the tibial tubercle and up into the quadriceps tendon. The incision was then deepened down to the retinacular structures anteriorly. Medial and lateral dissection was carried out. A medial retinacular incision was made from the superior medial pole of patella down to the tibial tubercle and up into the quadriceps tendon splitting it longitudinally in the medial one-third. The patella was reflected. Medial and lateral dissection was carried out. Medial and lateral meniscectomies were initiated. The infrapatellar fat pad was debulked. The posterior surface of the patella was excised with the oscillating saw taking care to prevent injury to associated structures. Patella protector was applied to the posterior surface of the patella. The [place] line was marked with electrocautery. The drill hole was then made in the distal end of the femur. The distal femoral cutting guide and jig were assembled for a 5 degree 8-mm cut. Cutting block was stabilized with pins. The jig was removed. The distal femoral cut was completed with the oscillating saw. The osteophytes were trimmed. The sizing guide was then positioned in place. This was oriented according to [place] line and the epicondylar axis. The size was determined to be a size 8. The appropriate four-in-one cutting block was positioned in place. Anterior and posterior cuts were made followed by posterior and anterior chamfer cuts. The tibia was then exposed more fully. Medial and lateral meniscectomies were completed. The proximal tibial cutting guide and jig were then assembled for appropriate resection. This was then stabilized in place and the cut was determined with the spacer block. The proximal tibial cut was completed with the oscillating saw. Trial prosthesis were then inserted. It appeared that there was not enough resection of the tibia, therefore additional tibial resection was carried out after repositioning the cutting block. A large loose body was identified posterior medially and was removed. The posterior osteophytes were trimmed. Local anesthesia was administered throughout the knee with Exparel. The size 8 tibial baseplate trial was positioned in place. This was palpated with a [place] dissector to be certain that it was centered and there was some overhang of bone on each side. The tibial baseplate spacer was inserted for a 9 mm spacer. The femoral trial was impacted into place which was a size 8. The tibial baseplate was stabilized with pins in appropriate rotation. The knee was taken through range of motion which was 0 degrees extension to 130 degrees flexion by gravity and 135 degrees with push. The posterior surface of the patella drill holes were made prior to doing this. The patella trial was inserted and this was a size 38. The medial and lateral overhang was trimmed with a rongeur. Hemostasis was achieved throughout the procedure with electrocautery. The femoral drill holes were made. The femoral trial and tibial trial were removed after the tibial punch was impacted through this. The cut ends of bone were then cleaned with pulse lavage. The tibia was then cemented into place with pressurized simplex cement from the cement gun. Excess cement was trimmed. The tibial spacer was inserted. Using a second batch of cement the femoral component was then cemented into place with pressurized simplex cement from the cement gun along with the patella as well. The patella was held with patellar clamp. Excess cement was trimmed. The femur also had excess cement trimmed. After the cement had cured the range of motion was comparable to that with the trial prosthesis. The remainder of the Exparel was injected. Drains were brought out the superolateral aspect of the suprapatellar pouch. Wound closure then commenced using 0 Vicryl interrupted [id number] sutures for retinacular capsular structures, 2-0 Vicryl interrupted simple sutures with buried knots for the subcutaneous tissues and 4-0 Monocryl continuous subcuticular closure for the skin. The wound was dressed with Steri-Strips followed by dry dressing, sterile Sof-Rol, cooling pad, further sterile Sof-Rol and Esteban bandage from the base of the toes to midthigh. The patient was transferred from the operating room to the recovery room in satisfactory condition having tolerated the procedure well. COUNTS Counts were correct. SPECIMENS None. ESTIMATED BLOOD LOSS 300 mL. MD ROGER Leblanc/EDER /10:57 AM /1:18 PM
--- NOTE | 2017-02-18 07:47 | MD ---
cc: Helder DEXTER. ADMISSION DATE: 12/15/2016 DISCHARGE DATE: 12/18/2016 ADMISSION DIAGNOSIS Primary osteoarthritis, left knee FINAL DIAGNOSIS Primary osteoarthritis, left knee OPERATION During the hospitalization, left total knee arthroplasty with [place] Triathlon prosthesis (cemented) on 12/15/2016. PRESENT ILLNESS This 61-year-old man has had five years of left knee pain progressively worsening to the point that he has an ambulation tolerance of 15 minutes. He has difficulty with activities of daily living including position changes, ascending and descending stairs and standing from a seated position. Anti-inflammatory agents, analgesics, activity modification, Synvisc injections, intra-articular steroid injections and external supports have not helped his condition. Physical findings showed genu varum with crepitation throughout the entire range of motion, medial laxity, medial osteophytes and medial tenderness. There is crepitation on motion. X-ray showed articular cartilage loss to bone on bone in the medial compartment with subchondral sclerosis and osteophytes. HOSPITAL COURSE The patient was admitted on 12/15/2016. He had an abductor canal block carried out preoperatively and was transferred to the clean-air operating suite where he had a total knee arthroplasty carried out as noted above. He tolerated the procedure well. In post anesthesia, he was placed into a continuous passive motion device. He was transferred to the orthopedic floor that day and started on physical therapy the day of surgery. The day of surgery, he walked 30 feet and had a range of motion from minus 10-80 degrees. He remained afebrile. Postoperative hemoglobin was 14.3. His x-rays showed good position and alignment. He was started on DVT prophylaxis with FAHEEM stockings and sequentials initially, as well as early mobilization. He was also started on aspirin as an anticoagulant. On the second postoperative day, he was continuing to do well. He walked 20 feet with the therapist again. Range of motion was zero to 90 degrees. On the third postoperative day, he was discharged home with home health care. He had walked 70 feet with physical therapy. He remained afebrile. He has a follow-up appointment already scheduled preoperatively. DISCHARGE MEDICATIONS Included [place] 7.5/325. MD ROGER Leblanc/KRISTIE /6:22 PM /7:29 AM
== END 2016-12-18 12:49 | disposition home health service (06) | DRG 470 ==
LOC: HSDI 12-15 05:27 → N06B 12-15 12:09
PROVIDERS: ADMIT Orthopaedic Surgery; ATTEND Orthopaedic Surgery
PROC: 3E0T3CZ (ICD-10-PCS; 2016-12-15)
PROC: 0SRD0J9 Replacement of Left Knee Joint with Synthetic Substitute, Cemented, Open Approach (ICD-10-PCS; principal; 2016-12-15 07:02)
DX: M17.12 Unilateral primary osteoarthritis, left knee (principal); J84.10 Pulmonary fibrosis, unspecified; D69.6 Thrombocytopenia, unspecified; Z94.84 Stem cells transplant status; G62.9 Polyneuropathy, unspecified; M21.162 Varus deformity, not elsewhere classified, left knee; G89.29 Other chronic pain; E78.5 Hyperlipidemia, unspecified; M54.9 Dorsalgia, unspecified; F32.9 Major depressive disorder, single episode, unspecified; R41.89 Other symptoms and signs involving cognitive functions and awareness; R25.1 Tremor, unspecified; Z92.21 Personal history of antineoplastic chemotherapy; Z85.71 Personal history of Hodgkin lymphoma; Z87.891 Personal history of nicotine dependence; T45.1X5A Adverse effect of antineoplastic and immunosuppressive drugs, initial encounter
CPT/HCPCS: 70450; 73560; 80048; 82607; 84443; 85025; 85027; 86850; 86900; 86901; C1776; C9290; J0131; J0690; J1100; J1170; J1580; J1885; J2250; J2270; J2405; J2710; J3010; J7120

== ENCOUNTER → 2017-09-25 | Outpatient (CLI) | payer OTHER ==
[~2017-09-25] MED LIST: ARIC10TA PO; ASPI81TA23 PO; BENA25CA4 PO; CELE200C PO; CENTCHW4 CHEW; CENTTAB PO; CPMMACHINE; DONE10TA7 PO; ECASA81 PO; ESTETAB3 PO; EXAL8TAB PO; EZET10 PO; HYDR-3580 PO; HYDR-3583 PO; HYDR12.57 PO; ICOS1CAP PO; LEVO.075 PO; LEXA20TA PO; LIDO1ADH4 TOPICAL; LIDO5DIS35 TOPICAL; LORA-474 PO; LOSA50TA PO; LYRI150C PO; MELA3TAB PO; META0.52 PO; MILK500C2 PO; MISC-163; NAME10TA PO; OMEG1CAP53 PO; OMEP20TA93 PO; OSTETAB3 PO; OXYBXL10 PO; PRIL20CA9 PO; TOPI25TA7 PO; TRAM150C6 PO; TRIL135C PO; VESI10TA2 PO; VITA2000 PO; WALKER WHEELS/F1 MIS; [UNRECOGNIZED DRUG - CODE] PO; [UNRECOGNIZED DRUG - CODE] TOPICAL
[2017-09-25 10:40] LABS: APTT (PATIENT) 27.8 SEC (24.3-30.1); PROTHROMBIN TIME - PATIENT 11.4 SEC (9.8-11.6)
[2017-09-25 11:26] LABS: BLOOD, URINE NEG (NEG); COMMENT (UR) CULT NOT INDICATED; CULTURE IF INDICATED CULT NOT INDICATED; GLUCOSE,URINE NEG (NEG); KETONE, URINE NEG (NEG); MUCUS URINE FEW /lpf (OCC); NITRITE,URINE NEG (NEG); URINE COLOR YELLOW (YELLW/STRAW)
== END ==
LOC: CPRE 09:23
PROVIDERS: ATTEND Orthopaedic Surgery
DX: Z01.812 Encounter for preprocedural laboratory examination (principal); M17.11 Unilateral primary osteoarthritis, right knee; M79.609 Pain in unspecified limb; I10 Essential (primary) hypertension
CPT/HCPCS: 36415; 81001; 85610; 85730

== ENCOUNTER 2017-10-05 05:09 | Inpatient (IN) | payer OTHER ==
[~2017-10-05] VITALS: Ht 185.4 cm; Wt 113.8 kg
[2017-10-05] VITALS (8 sets, daily range): BP systolic 78–102; BP diastolic 40–62; PULSE 82–100; RESP 17–18; TEMP 96.2–96.9; O2SAT 93–95
[~2017-10-05 05:09] MED LIST changes: -ECASA81 PO
[2017-10-05] MEDS ORDERED: LACTATED RINGER'S 1000 ML IV PRN (05:45)
[2017-10-05] MEDS ORDERED: METOPROLOL TARTRATE 25 MG TAB PO PRN (05:45)
[2017-10-05] MEDS ORDERED: CHLORHEXIDINE GLUCONATE 4% SOLN 120 ML BTL TOPICAL SCH (05:45)
[2017-10-05] MEDS ORDERED: ceFAZolin 2 GM PREMIX 50 ML IV SCH (05:45)
[2017-10-05] MEDS ORDERED: CHLORHEXIDINE GLUCONATE 2 % 1 PACK (2 CLOTHS) TOPICAL PRN (05:45)
[2017-10-05] MEDS ORDERED: POVIDONE IODINE 5% (ANTISEPSIS KIT) 4 APPLICATIONS EACH NARE PRN (05:45)
[2017-10-05] MEDS ORDERED: SODIUM CHLORID 0.9% 500 ML IV PRN (05:45)
[2017-10-05] MEDS ORDERED: INSULIN HUMAN REGULAR 1,000 UNITS/10 ML VIAL SQ PRN (05:45)
[2017-10-05] MEDS ORDERED: ACETAMINOPHEN 1000 MG/100 ML 100 ML IV ONE (06:14)
[2017-10-05] MEDS ORDERED: GENTAMICIN SULFATE 80 MG/2 ML VIAL ONE (06:17)
[2017-10-05] MEDS ORDERED: ONDANSETRON HCL 4 MG/2 ML VIAL IVP PRN (06:45)
[2017-10-05] MEDS ORDERED: SODIUM CHLORIDE 0.9% FLUSH 5 ML FLUSH IVF PRN (06:45)
[2017-10-05] MEDS ORDERED: ZOLPIDEM TARTRATE 5 MG TAB PO PRN (06:45)
[2017-10-05] MEDS ORDERED: TRANEXAMIC ACID INJ 0 MG in SODIUM CHLORIDE 0.9% INJ 100 ML IV SCH (06:45)
[2017-10-05] MEDS ORDERED: ACETAMINOPHEN/HYDROcodone 325 MG/7.5 MG TAB PO PRN (06:45)
[2017-10-05] MEDS ORDERED: Post-op Orders (for Pharmacy) MISC XX ONE (06:45)
[2017-10-05] MEDS ORDERED: MAGNESIUM HYDROXIDE SUSP 30 ML CUP PO PRN (06:45)
--- NOTE | 2017-10-05 06:53 | HHI.FF ---
Face to Face Verification Diagnosis: (1) Status post total right knee replacement Physical Therapy Gait training Knee: Total knee, Protocol: Right, Gait training, Full weight bearing Right LE Weight Bearing: WB as tolerated Right LE Range of Motion: Active ROM (AROM, AAROM, PROM. ROM goal is 0 to 130 degrees.) Nursing Nursing: Dressing changes Dressing Changes: Daily dressing change (Start on postop day7.), Coverderm/ [place] Additional Instructions Remove steristrips on postop day 14. I have seen patient Dariusz Craig Jr Mara on 10/05/17. My clinical findings support the need for the requested home health care services because: Ltd mobility - disease progression Limited ability to care for self High risk of falls I certify that my clinical findings support that this patient is homebound because: Post-op weakness Unsteady gait/balance Unsafe to leave home unassisted Luis Mccarty MD (Charles) Oct 05, 2017 06:53
[2017-10-05] MEDS ORDERED: ARTIFICIAL TEARS OPTH OINT 3.5 APPLIC/3.5 GM TUBO ONE (06:54)
[2017-10-05] MEDS ORDERED: ECASA81 PO (06:58)
[2017-10-05] MEDS ORDERED: TRANEXAMIC ACID IV SCH ×2 (07:00→10:00)
[2017-10-05] MEDS ORDERED: SODIUM CHLORIDE 0.9% IV SCH ×2 (07:00→10:00)
[2017-10-05] MEDS: EXPAREL PERI-ARTICULAR INJECTION (TOTAL VOL. 100 ML) P-ARTICULR SCH ×4 (08:14→08:21)
[2017-10-05] MEDS ORDERED: ASCORBATE CALCIUM PO SCH (09:00)
[2017-10-05] MEDS ORDERED: PSYLLIUM PO SCH (09:00)
[2017-10-05] MEDS: CHOLECALCIFEROL (VIT D3) 1000 UNIT TAB PO SCH ×2 (09:00→20:24)
[2017-10-05] MEDS ORDERED: MILK THISTLE 1000 MG PO SCH (09:00)
[2017-10-05] MEDS: EZETIMIBE 10 MG TAB PO SCH (09:00)
[2017-10-05] MEDS: MEMANTINE HCL 10 MG TAB PO SCH ×2 (09:00→20:24)
[2017-10-05] MEDS: ESCITALOPRAM OXALATE 20 MG TAB PO SCH (09:00)
[2017-10-05] MEDS: PREGABALIN 75 MG CAP PO SCH ×2 (09:00→12:20)
[2017-10-05] MEDS: SODIUM CHLORIDE 0.9% FLUSH 5 ML FLUSH IVF SCH ×2 (09:00→20:24)
[2017-10-05] MEDS: ASPIRIN EC 81 MG TABEC PO SCH ×2 (09:00→19:43)
[2017-10-05] MEDS ORDERED: LOSARTAN 50 MG TAB PO SCH (09:00)
[2017-10-05] MEDS ORDERED: BIOFLAVONOID PO SCH (09:00)
[2017-10-05] MEDS ORDERED: GLUCOSAMINE CHONDROITIN PO SCH (09:00)
[2017-10-05] MEDS ORDERED: HYDROMORPHONE 8 MG PO SCH (09:00)
[2017-10-05] MEDS: PANTOPRAZOLE SOD 20 MG DELAYED RELEASE TAB PO SCH ×2 (09:00→20:24)
[2017-10-05] MEDS ORDERED: TRAMADOL PO SCH (09:00)
[2017-10-05] MEDS ORDERED: HYDROCHLOROTHIAZIDE 12.5 MG CAP PO SCH (09:00)
[2017-10-05] MEDS: TOPIRAMATE 25 MG TAB PO SCH ×2 (09:00→20:24)
[2017-10-05] MEDS: CELECOXIB 200 MG CAP PO SCH (09:00)
[2017-10-05] MEDS ORDERED: ICOSAPENT ETHYL PO SCH (09:00)
--- NOTE | 2017-10-05 09:29 | HHI.PR ---
Immediate Post Op Note Procedure Date: Oct 05, 2017 Pre Op Diagnosis: (1) Primary osteoarthritis of right knee Post Op Diagnosis: (1) Primary osteoarthritis of right knee Surgeon: Dane Mccarty MD Brush Maker Machine(s): THEODORA Pimentel Procedure: Right total knee aarthroplasty with [place] Triathlon prosthesis, uncemented. Findings: OA Complications: None Specimen(s) removed: None. Estimated blood loss: 300 ml Anesthesia: General, Regional Block (Adductor canal), Local (Exparil) Drains: Hemovac (2) Tourniquet time (min at mmHg) 0 Patient to: PACU Patient Condition: Good Implant/Devices: SEE IMPLANT LOG (if applicable) Date/Time of Procedure: SEE SURGICAL CARE RECORD Luis Mccarty MD (Charles) Oct 05, 2017 09:29
[2017-10-05] MEDS ORDERED: KETOROLAC TROMETHAMINE 30 MG/ML (IVP) VIAL IVP SCH (10:00)
[2017-10-05] MEDS ORDERED: DO NOT ADM ANY ANTICOAGULANT DRUGS PRN (10:00)
[2017-10-05] MEDS ORDERED: *morphine SULFATE 8 MG/ML PERIprocedure ONLY ONE ×2 (10:21→10:39)
[2017-10-05] MEDS: LACTATED RINGER'S 1000 ML INJ 1,000 ML IV SCH ×2 (10:30→19:14)
--- NOTE | 2017-10-05 10:47 | MP ---
cc: Helder DEXTER. DATE OF SURGERY: 10/05/2017 PREOPERATIVE DIAGNOSIS Primary osteoarthritis, right knee. POSTOPERATIVE DIAGNOSIS Primary osteoarthritis, right knee. OPERATION PERFORMED Right total knee arthroplasty with [place] Triathlon prosthesis (uncemented). SURGEON Luis Dexter MD. ANESTHESIA General by LMA with supplemental adductor canal block and local. INDICATIONS AND FINDINGS This 62-year-old man has had longstanding pain in his right knee secondary to osteoarthritis that has been present for over five years. His ambulation tolerance is now 1-2 blocks because of pain. He has swelling in the joint with stiffness. He has difficulty ascending and descending stairs and standing from a seated position. Treatment has included anti-inflammatory agents, analgesics, activity modification, exercise, intraarticular corticosteroids, Synvisc injections and ambulatory aids. He has not responded to conservative measures at this time and is unable to tolerate activities of daily living. Physical findings showed some genu varum in the right knee with medial laxity and medial tenderness especially. X-rays showed loss of articular cartilage to [id number]-[id number] in the medial compartment with subchondral sclerosis and tibial and femoral osteophytes, especially medially, along with patellofemoral and lateral osteophytes. Operative findings showed severe osteoarthritis throughout the knee with loss of articular cartilage to [id number] in the medial and lateral compartments and approaching that in the patellofemoral joint. There are osteophytes. There is eburnation. IMPLANTS The prosthesis used is a [place] Triathlon prosthesis with the femur being a size 8 right cruciate-retaining uncemented, the tibia being a size 8 tritanium baseplate with a 9 mm spacer, also cruciate-retaining and X3 polyethylene, and the patella being a size 38 asymmetric patella, tritanium backed and uncemented. PROCEDURE The patient was brought to the clean-air operating suite and a general anesthetic was administered followed by an abductor canal block. He received prophylactic antibiotics in the form of Ancef and also received tranexamic acid. He was placed in a supine position on the operating table with a bolster under the right hip and a pneumatic tourniquet about the right thigh. The limb was then prepped with alcohol, Hibiclens and ChloraPrep and draped in the usual manner with the knee draped free. An appropriate timeout procedure was carried out. An anterior incision was made from three fingerbreadths above the superior medial pole of the patella down to the tibial tubercle on the medial side. The incision was deepened through subcutaneous tissue to the retinacular structures which were exposed medially and laterally. A medial retinacular incision was then made from the superior medial pole of the patella down to the tibial tubercle and up into the quadriceps tendon splitting it longitudinally in the medial one-third. The patella was reflected. The infrapatellar fat pad was debulked. Medial and lateral dissection was carried out. The posterior surface of the patella was excised with the oscillating saw taking care to prevent injury to ligamentous and tendinous structures. A patella protector was applied. The patella dropped into the lateral gutter. Medial and lateral dissection was completed more thoroughly including initiation of meniscectomies. The distal femoral fenestration was made with the appropriate drill in the usual manner with the same being done for the tibia. The intramedullary referencing guide was then positioned into the femur for a 5 degree, 8 mm cut on the femur. The cutting block was stabilized for rotation and positioned appropriately. The distal femoral cut was completed with the oscillating saw. The sizing guide was positioned along [place]'s line and the epicondylar axis. A cutting block was stabilized with pins. The jig was removed. The distal femoral cuts were then made using the oscillating saw doing the anterior and posterior cuts followed by the posterior and anterior chamfer cuts. Osteophytes were trimmed. Retractors were then placed for the tibia. The intramedullary referencing guide was positioned in place and stabilized with pins. The proximal tibial cut was completed with the oscillating saw after verifying the depth of the cut with the spacer block. After the cut was completed taking care to prevent injury to neurovascular and ligamentous structures, the spacer block verified that this was an appropriate cut. Local anesthesia was administered throughout the knee and the posterior capsule with Exparel. After this was done trial reduction was carried out. An additional 2 mm was then resected from the distal tibia in the usual manner as noted above. The trial prosthesis was again inserted. This was appropriate for the above noted size prosthesis. The femoral and tibial components were placed. The tibia was stabilized with pins. The range of motion was then checked and was easily 0 degree extension to 130 degrees of flexion. Soft tissues limited further flexion. The stability was excellent. Patella tracking was appropriate. The patella trial was removed. Drill holes were made in the femoral trial and the femoral trial was removed. The tibial spacer was removed. The tibial punch was impacted through its guide after placement of bone graft into the medullary canal, tibia and femur. The tibial baseplate trial was removed followed by placement of the drill guide which was held in place in order to drill the tibia. After this was completed the cut ends of bone were cleaned with pulse lavage. The tibial baseplate was then impacted into place and stabilized appropriately. The femoral component was then impacted into place and seated appropriately after placement of the tibial spacer. The patella component was then positioned onto the posterior surface of the patella and seated with a patella vise. The remainder of the Exparel was injected throughout the knee. The drains were brought out the superolateral aspect of the suprapatellar pouch. Wound closure then commenced using 0 Vicryl interrupted [id number] sutures for closure of the capsule and fascial structures, 2-0 Vicryl interrupted simple sutures with buried knots for the subcutaneous tissues and 4-0 Monocryl continuous subcuticular closure for the skin. The wound was dressed with Steri-Strips followed by Aqua foam dressing, sterile Sof-Rol, cooling pad and Esteban bandage from the base of the toes to the mid thigh. The patient was transferred from the operating room to the recovery room in satisfactory condition having tolerated the procedure well. Counts were correct. Specimens none. Estimated blood loss 300 mL. MD ROGER Leblanc/TONY /9:37 AM /10:23 AM
[2017-10-05] MEDS ORDERED: LIDOCAINE HCL 1% PF 5 ML AMPULE OTHER ONE (12:00)
[2017-10-05] MEDS ORDERED: LACTATED RINGER'S 1000 ML INJ 1,000 ML IV ONE (12:00)
[2017-10-05] MEDS ORDERED: MIDAZOLAM HCL 2 MG/2 ML VIAL IV ONE (12:00)
[2017-10-05] MEDS ORDERED: PHENYLEPH/NS 1000 MCG/10 ML SYR IV ONE (12:00)
[2017-10-05] MEDS ORDERED: DEXAMETHASONE SOD PHOS 4 MG/ML VIAL IV ONE (12:00)
[2017-10-05] MEDS ORDERED: NEOSTIGMINE METHYLSULFATE 10 MG/10 ML VIAL IV PUSH ONE (12:00)
[2017-10-05] MEDS ORDERED: PROPOFOL 200 MG/20 ML AMP IV ONE (12:00)
[2017-10-05] MEDS ORDERED: ONDANSETRON HCL 4 MG/2 ML VIAL IV PUSH ONE (12:00)
[2017-10-05] MEDS ORDERED: ePHEDrine/NS 25 MG/5 ML SYR IV ONE (12:00)
[2017-10-05] MEDS ORDERED: ROCURONIUM INJ 50 MG/5 ML SYRINGE IV PUSH ONE (12:00)
[2017-10-05] MEDS ORDERED: GLYCOPYRROLATE 1 MG/5 ML SYRINGE IV PUSH ONE (12:00)
--- NOTE | 2017-10-05 12:08 | RADRPT ---
EXAM DATE/TIME: 10/05/2017 10:38 [place] COMPARISON: No previous studies available for comparison. INDICATIONS : Post-op total right knee arthroplasty. MEDICAL HISTORY : None. SURGICAL HISTORY : None. ENCOUNTER: Initial ACUITY: 1 day PAIN SCORE: 9/10 LOCATION: Right knee. FINDINGS: AP and lateral views of the knee following arthroplasty reveals a prosthesis in anatomic alignment. F racture is not appreciated. Surgical drain is evident CONCLUSION: Status post total knee arthroplasty. Barak Rascon MD FACR Board Certified Radiologist. This report was verified electronically.
[2017-10-05] MEDS: KETOROLAC TROMETHAMINE 30 MG/ML (IVP) VIAL IVP SCH ×2 (12:20→18:03)
[2017-10-05] MEDS ORDERED: cloNIDine HCL 0.1 MG TAB PO PRN (12:45)
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
[2017-10-05] MEDS ORDERED: RESP: ALBUTEROL 2.5 MG/IPRATROPIUM 0.5 MG NEB (PRN) NEB (13:30)
[2017-10-05] MEDS ORDERED: SODIUM CHLOR 0.9% 1000 ML INJ 1,000 ML IV ONE (15:15)
[2017-10-05 16:00] LABS: ALKALINE PHOSPHATASE 54 U/L (45-117); ALT (GPT) 36 U/L (12-78); TOTAL BILIRUBIN ADULT 0.4 MG/DL (0.2-1.0)
[2017-10-05 16:37] LABS: ANION GAP 8 MEQ/L (5-15); AST (GOT) 61 U/L (15-37); BICARBONATE 26.7 MEQ/L (21.0-32.0); BLOOD UREA NITROGEN 17 MG/DL (7-18); CHLORIDE 103 MEQ/L (98-107); GLOMERULAR FILTRATION RATE 62 ML/MIN (>89); POTASSIUM 4.7 MEQ/L (3.5-5.1); SODIUM (NA) 138 MEQ/L (136-145)
[2017-10-05] MEDS: TOLTERODINE TARTRATE 4 MG CAP LA PO SCH (20:24)
[2017-10-05] MEDS: FENOFIBRATE 145 MG TAB PO SCH (20:24)
[2017-10-05] MEDS: DONEPEZIL HCL 5 MG TAB PO SCH (20:24)
[2017-10-05 20:25] LABS: HEMATOCRIT 36.1 % (39.0-51.0); MEAN CELL VOLUME 92.6 FL (80.0-100.0); MEAN CORPUSCULAR HEMOGLOBIN 30.9 PG (27.0-34.0); MEAN CORPUSCULAR HGB CONC 33.3 % (32.0-36.0); PLATELET COUNT 89 TH/MM3 (150-450); RED CELL DISTRIBUTION WIDTH 15.4 % (11.6-17.2); WHITE BLOOD COUNT 7.4 TH/MM3 (4.0-11.0)
[2017-10-05 20:26] LABS: REVIEW FLAG FINAL
[2017-10-05] MEDS: LORazepam 1 MG TAB PO SCH (23:04)
[2017-10-05] MEDS: MELATONIN 5 MG TAB PO SCH (23:04)
[2017-10-06 00:20] VITALS: BP 98/57; PULSE 77; RESP 17; TEMP 97; O2SAT 93
[2017-10-06] MEDS: KETOROLAC TROMETHAMINE 30 MG/ML (IVP) VIAL IVP SCH ×5 (00:30→23:22)
[2017-10-06 04:20] VITALS: BP 116/67; PULSE 103; RESP 18; TEMP 96.8; O2SAT 96
[2017-10-06] MEDS: ACETAMINOPHEN/HYDROcodone 325 MG/7.5 MG TAB PO PRN ×5 (04:48→23:22)
[2017-10-06] MEDS: LEVOTHYROXINE SODIUM 75 MCG TAB PO SCH (04:48)
--- NOTE | 2017-10-06 06:27 | PD.ORT.PN ---
Subjective Post Op Day #: 1 Subjective Remarks He is doing well. He has no real complaints this morning but is somewhat lethargic. Range of Motion -6 to 85 degrees. Distance Walked 4 feet with PT. Objective Vitals Vital Signs Date Time Temp Pulse Resp B/P (MAP) Pulse Ox O2 Delivery O2 Flow Rate FiO2 10/06/17 04:20 96.8 103 18 116/67 (83) 96 10/06/17 00:20 97.0 77 17 98/57 (71) 93 10/05/17 20:20 96.9 82 17 102/62 (75) 93 Manual Cuff/Palpation 10/05/17 18:07 94/50 (65) 10/05/17 16:09 92/60 (71) 10/05/17 15:22 95 Nasal Cannula 3.00 10/05/17 14:50 78/40 (53) 10/05/17 14:10 92/56 (68) 10/05/17 14:00 79/47 (58) 10/05/17 11:36 96.2 100 18 81/53 (62) 93 10/05/17 11:00 97.8 97 16 102/56 (71) 94 Nasal Cannula 3 10/05/17 10:45 98 15 100/54 (69) 94 Nasal Cannula 3 10/05/17 10:30 100 15 104/52 (69) 93 Nasal Cannula 3 10/05/17 10:15 108 15 109/55 (73) 92 Nasal Cannula 3 10/05/17 10:00 107 15 108/54 (72) 94 Nasal Cannula 4 10/05/17 09:55 98.5 109 16 109/55 (73) 93 Nasal Cannula 4 I/O 10/05/17 10/05/17 10/05/17 10/06/17 10/06/17 10/06/17 07:00 15:00 23:00 07:00 15:00 23:00 Intake Total 1551.37 ml 580 ml 100 ml Output Total 395 ml 1565 ml Balance 1156.37 ml -985 ml 100 ml Intake Oral 480 ml IV Total 151.37 ml 100 ml 100 ml Other 1400 ml Output Urine Total 1500 ml Drainage Total 95 ml 65 ml Estimated Blood Loss 300 ml # Voids 0 2 # Bowel Movements 0 Result Diagram: 10/05/17191810/05/17 3497 Imaging Last 24 hours Impressions Knee X-Ray 10/05/17 0644 Signed Impressions: Service Date/Time: Thursday, October 05, 2017 10:38 - CONCLUSION: Status post total knee arthroplasty. Barak Rascon MD Objective Remarks He is resting comfortably, supine in bed in the CPM. The dressing is dry and intact. The neurovascular status is intact. Assessment & Plan Ortho Post Op Day #: 1 Problem List: (1) Status post total right knee replacement ICD Codes: Z96.651 - Presence of right artificial knee joint Plan: Continue postop care and PT. Assessment and Plan Condition: Good. Orthopaedically stable. DVT prophylaxis: TEDs, ASA, sequentials. Discharge plans: Home with [facility]. Has appointment. Rx [place] , disp 30 Luis Mccarty MD (Charles) Oct 06, 2017 06:27
[2017-10-06] MEDS ORDERED: HYDR-3583 PO (06:43)
[2017-10-06 07:33] LABS: HEMATOCRIT 32.4 % (39.0-51.0)
[2017-10-06] MEDS: LACTATED RINGER'S 1000 ML INJ 1,000 ML IV SCH ×2 (07:44→20:14)
[2017-10-06 07:45] LABS: REVIEW FLAG FINAL
[2017-10-06] MEDS: SODIUM CHLORIDE 0.9% FLUSH 5 ML FLUSH IVF SCH ×2 (09:00→19:57)
[2017-10-06] MEDS: ESCITALOPRAM OXALATE 20 MG TAB PO SCH (09:00)
[2017-10-06] MEDS: MEMANTINE HCL 10 MG TAB PO SCH ×2 (09:32→19:51)
[2017-10-06] MEDS: CELECOXIB 200 MG CAP PO SCH (09:33)
[2017-10-06] MEDS: EZETIMIBE 10 MG TAB PO SCH (09:33)
[2017-10-06] MEDS: CHOLECALCIFEROL (VIT D3) 1000 UNIT TAB PO SCH ×2 (09:33→19:50)
[2017-10-06] MEDS: TOPIRAMATE 25 MG TAB PO SCH ×2 (09:33→19:51)
[2017-10-06] MEDS: PANTOPRAZOLE SOD 20 MG DELAYED RELEASE TAB PO SCH ×2 (09:33→19:50)
[2017-10-06] MEDS: ASPIRIN EC 81 MG TABEC PO SCH ×2 (09:33→19:50)
[2017-10-06 11:55] VITALS: BP 110/53; PULSE 96; RESP 19; TEMP 96.2; O2SAT 93
[2017-10-06] MEDS: PREGABALIN 75 MG CAP PO SCH ×2 (12:51→17:41)
[2017-10-06] MEDS: MORPHINE SULFATE 4 MG/ML INJ IV PUSH PRN ×2 (15:37→19:52)
--- NOTE | 2017-10-06 15:47 | HHI.PR ---
Subjective Remarks Follow-up for right total knee arthroplasty. Patient is currently doing well. Denies any chest pain, shortness of breath, fever or chills. His blood pressure was lower yesterday and this morning. However during the day his blood pressure has been in the reasonable range. Objective Vitals Vital Signs Date Time Temp Pulse Resp B/P (MAP) Pulse Ox O2 Delivery O2 Flow Rate FiO2 10/06/17 11:55 96.2 96 19 110/53 (72) 93 10/06/17 04:20 96.8 103 18 116/67 (83) 96 10/06/17 00:20 97.0 77 17 98/57 (71) 93 10/05/17 20:20 96.9 82 17 102/62 (75) 93 Manual Cuff/Palpation 10/05/17 18:07 94/50 (65) 10/05/17 16:09 92/60 (71) I/O 10/05/17 10/05/17 10/05/17 10/06/17 10/06/17 10/06/17 07:00 15:00 23:00 07:00 15:00 23:00 Intake Total 1551.37 ml 580 ml 460 ml 800 ml Output Total 395 ml 1565 ml 320 ml 450 ml Balance 1156.37 ml -985 ml 140 ml 350 ml Intake Oral 480 ml 360 ml 800 ml IV Total 151.37 ml 100 ml 100 ml Other 1400 ml Output Urine Total 1500 ml 300 ml 450 ml Drainage Total 95 ml 65 ml 20 ml Estimated Blood Loss 300 ml # Voids 0 2 # Bowel Movements 0 0 0 Result Diagram: 10/06/17 0600 10/05/17 1447 Imaging Last Impressions Knee X-Ray 10/05/17 0644 Signed Impressions: Service Date/Time: Thursday, October 05, 2017 10:38 - CONCLUSION: Status post total knee arthroplasty. Barak Rascon MD Objective Remarks GENERAL: Alert, oriented 3, NAD. SKIN: Warm and dry. HEAD: Normocephalic. EYES: No scleral icterus. No injection or drainage. NECK: Supple, trachea midline. No JVD or lymphadenopathy. CARDIOVASCULAR: Regular rate and rhythm without murmurs, gallops, or rubs. RESPIRATORY: Breath sounds equal bilaterally. No accessory muscle use. GASTROINTESTINAL: Abdomen soft, non-tender, nondistended. MUSCULOSKELETAL: No cyanosis, or edema. Status post right knee arthroplasty. BACK: Nontender without obvious deformity. No CVA tenderness. Procedures Right total knee arthroplasty 10/05/2017 A/P Assessment and Plan Mr. Terry is a pleasant 62-year-old male with a history of right knee osteoarthritis who underwent right total knee arthroplasty on 10/05/2017. - Right knee osteoarthritis - Status post right total knee arthroplasty - Continue aspirin 81 mg twice a day. - [place] for pain as well as morphine for breakthrough. - Colace and milk of mag for bowel regimen. - Hypertension - Patient takes losartan 50 mg daily, hydrochlorothiazide 12.5 mg daily. - His blood pressure today has been in the 110 - 120 range systolic. - At this point, we will avoid any antihypertensives. - History of Hodgkin's lymphoma status post chemotherapy and stem cell transplantation. - History of pulmonary fibrosis likely due to bleomycin - continue oxygen and breathing treatments as needed. Full code. Aspirin. Maria L Jernigan DO Oct 06, 2017 3:47 pm
[2017-10-06 16:00] VITALS: BP 119/56; PULSE 81; RESP 19; TEMP 96.7; O2SAT 95
[2017-10-06] MEDS: DONEPEZIL HCL 5 MG TAB PO SCH (19:50)
[2017-10-06] MEDS: DOCUSATE SODIUM 100 MG CAP PO SCH (19:50)
[2017-10-06] MEDS: MELATONIN 5 MG TAB PO SCH (19:50)
[2017-10-06] MEDS: FENOFIBRATE 145 MG TAB PO SCH (19:51)
[2017-10-06] MEDS: TOLTERODINE TARTRATE 4 MG CAP LA PO SCH (19:51)
[2017-10-06] MEDS: LORazepam 1 MG TAB PO SCH (19:51)
[2017-10-06 20:20] VITALS: BP 128/69; PULSE 87; RESP 17; TEMP 97.4; O2SAT 93
[2017-10-06 20:23] VITALS: O2SAT 95
[2017-10-06] MEDS ORDERED: ESCITALOPRAM OXALATE 20 MG TAB PO SCH (21:00)
[2017-10-07 00:25] VITALS: BP 103/63; PULSE 68; RESP 16; TEMP 97.5; O2SAT 99
[2017-10-07 04:20] VITALS: BP 113/61; PULSE 79; RESP 17; TEMP 97.5; O2SAT 94
[2017-10-07] MEDS: LEVOTHYROXINE SODIUM 75 MCG TAB PO SCH (04:29)
[2017-10-07] MEDS: KETOROLAC TROMETHAMINE 30 MG/ML (IVP) VIAL IVP SCH (04:29)
[2017-10-07] MEDS: ACETAMINOPHEN/HYDROcodone 325 MG/7.5 MG TAB PO PRN (04:30)
--- NOTE | 2017-10-07 07:42 | PD.ORT.PN ---
Subjective Post Op Day #: 2 Subjective Remarks He is doing well. He has less pain today and is anxious to go home. Range of Motion -3 to 88 degrees. Distance Walked 12 feet. Objective Vitals Vital Signs Date Time Temp Pulse Resp B/P (MAP) Pulse Ox O2 Delivery O2 Flow Rate FiO2 10/07/17 04:20 97.5 79 17 113/61 (78) 94 10/07/17 00:25 97.5 68 16 103/63 (76) 99 10/06/17 20:23 95 21 10/06/17 20:20 97.4 87 17 128/69 (88) 93 10/06/17 16:00 96.7 81 19 119/56 (77) 95 10/06/17 11:55 96.2 96 19 110/53 (72) 93 I/O 10/06/17 10/06/17 10/06/17 10/07/17 10/07/17 10/07/17 07:00 15:00 23:00 07:00 15:00 23:00 Intake Total 460 ml 800 ml 360 ml 240 ml Output Total 320 ml 450 ml 130 ml 380 ml Balance 140 ml 350 ml 230 ml -140 ml Intake Oral 360 ml 800 ml 360 ml 240 ml IV Total 100 ml Output Urine Total 300 ml 450 ml 300 ml Drainage Total 20 ml 130 ml 80 ml # Voids 1 # Bowel Movements 0 0 0 0 Result Diagram: 10/06/17 0600 10/05/17 1447 Imaging Last 24 hours Impressions Knee X-Ray 10/05/17 0644 Signed Impressions: Service Date/Time: Thursday, October 05, 2017 10:38 - CONCLUSION: Status post total knee arthroplasty. Barak Rascon MD Objective Remarks He is resting comfortably, supine in bed in the CPM. The dressing is dry and intact. The neurovascular status is intact. Assessment & Plan Problem List: (1) Status post total right knee replacement ICD Codes: Z96.651 - Presence of right artificial knee joint Plan: Continue postop care and PT. Assessment and Plan Condition: Good. Orthopaedically stable. DVT prophylaxis: TEDs, ASA, sequentials. Discharge plans: Home with [facility]. Has appointment. Rx [place] 10/325, disp 30 Luis Mccarty MD ([place]) Oct 07, 2017 07:42
[2017-10-07 08:00] VITALS: BP 105/53; PULSE 75; RESP 19; TEMP 96.4; O2SAT 96
[2017-10-07] MEDS: LACTATED RINGER'S 1000 ML INJ 1,000 ML IV SCH (08:00)
[2017-10-07 08:49] LABS: HEMATOCRIT 31.2 % (39.0-51.0)
[2017-10-07] MEDS: SODIUM CHLORIDE 0.9% FLUSH 5 ML FLUSH IVF SCH (09:00)
[2017-10-07] MEDS: CELECOXIB 200 MG CAP PO SCH (09:00)
[2017-10-07] MEDS: DOCUSATE SODIUM 100 MG CAP PO SCH (09:00)
[2017-10-07 09:02] LABS: REVIEW FLAG FINAL
--- NOTE | 2017-10-07 09:53 | HHI.PR ---
Subjective Remarks Follow-up for right total knee arthroplasty. Patient is doing well. No acute concerns. Objective Vitals Vital Signs Date Time Temp Pulse Resp B/P (MAP) Pulse Ox O2 Delivery O2 Flow Rate FiO2 10/07/17 08:00 96.4 75 19 105/53 (70) 96 10/07/17 04:20 97.5 79 17 113/61 (78) 94 10/07/17 00:25 97.5 68 16 103/63 (76) 99 10/06/17 20:23 95 21 10/06/17 20:20 97.4 87 17 128/69 (88) 93 10/06/17 16:00 96.7 81 19 119/56 (77) 95 10/06/17 11:55 96.2 96 19 110/53 (72) 93 I/O 10/06/17 10/06/17 10/06/17 10/07/17 10/07/17 10/07/17 07:00 15:00 23:00 07:00 15:00 23:00 Intake Total 460 ml 800 ml 360 ml 240 ml Output Total 320 ml 450 ml 130 ml 380 ml Balance 140 ml 350 ml 230 ml -140 ml Intake Oral 360 ml 800 ml 360 ml 240 ml IV Total 100 ml Output Urine Total 300 ml 450 ml 300 ml Drainage Total 20 ml 130 ml 80 ml # Voids 1 # Bowel Movements 0 0 0 0 Result Diagram: 10/07/17 0810 10/05/17 1447 Imaging Last Impressions Knee X-Ray 10/05/17 0644 Signed Impressions: Service Date/Time: Thursday, October 05, 2017 10:38 - CONCLUSION: Status post total knee arthroplasty. Barak Rascon MD Objective Remarks GENERAL: Alert, oriented 3, NAD. SKIN: Warm and dry. HEAD: Normocephalic. EYES: No scleral icterus. No injection or drainage. NECK: Supple, trachea midline. No JVD or lymphadenopathy. CARDIOVASCULAR: Regular rate and rhythm without murmurs, gallops, or rubs. RESPIRATORY: Breath sounds equal bilaterally. No accessory muscle use. GASTROINTESTINAL: Abdomen soft, non-tender, nondistended. MUSCULOSKELETAL: No cyanosis, or edema. Status post right knee arthroplasty. BACK: Nontender without obvious deformity. No CVA tenderness. Procedures Right total knee arthroplasty 10/05/2017 A/P Assessment and Plan Mr. Terry is a pleasant 62-year-old male with a history of right knee osteoarthritis who underwent right total knee arthroplasty on 10/05/2017. - Right knee osteoarthritis - Status post right total knee arthroplasty - Continue aspirin 81 mg twice a day. - [place] for pain as well as morphine for breakthrough. - Colace and milk of mag for bowel regimen. - Patient has pain management outpatient. - Hypertension - At home, patient takes losartan 50 mg daily, hydrochlorothiazide 12.5 mg daily. - His blood pressure has been in the 110 - 120 range systolic. - At this point, we will avoid any antihypertensives. - History of Hodgkin's lymphoma status post chemotherapy and stem cell transplantation. - History of pulmonary fibrosis likely due to bleomycin - continue oxygen and breathing treatments as needed. Full code. Aspirin. Discharge: Home today. Maria L Jernigan DO Oct 07, 2017 9:53 am
[2017-10-07] MEDS: PANTOPRAZOLE SOD 20 MG DELAYED RELEASE TAB PO SCH (10:13)
[2017-10-07] MEDS: EZETIMIBE 10 MG TAB PO SCH (10:13)
[2017-10-07] MEDS: CHOLECALCIFEROL (VIT D3) 1000 UNIT TAB PO SCH (10:13)
[2017-10-07] MEDS: PREGABALIN 75 MG CAP PO SCH (10:13)
[2017-10-07] MEDS: MEMANTINE HCL 10 MG TAB PO SCH (10:14)
[2017-10-07] MEDS: ASPIRIN EC 81 MG TABEC PO SCH (10:14)
[2017-10-07] MEDS: TOPIRAMATE 25 MG TAB PO SCH (10:19)
== END 2017-10-07 11:33 | disposition home health service (06) | DRG 470 ==
LOC: HSDI 05:09 → N06B 11:33
PROVIDERS: ADMIT Orthopaedic Surgery; ATTEND Orthopaedic Surgery
PROC: 3E0T3BZ Introduction of Anesthetic Agent into Peripheral Nerves and Plexi, Percutaneous Approach (ICD-10-PCS; 2017-10-05)
PROC: 0SRC0JA Replacement of Right Knee Joint with Synthetic Substitute, Uncemented, Open Approach (ICD-10-PCS; principal; 2017-10-05 06:59)
DX: M17.11 Unilateral primary osteoarthritis, right knee (principal); C81.90 Hodgkin lymphoma, unspecified, unspecified site; J84.10 Pulmonary fibrosis, unspecified; Z94.84 Stem cells transplant status; M21.161 Varus deformity, not elsewhere classified, right knee; Z92.21 Personal history of antineoplastic chemotherapy; E78.5 Hyperlipidemia, unspecified; G47.33 Obstructive sleep apnea (adult) (pediatric); G89.29 Other chronic pain; I10 Essential (primary) hypertension; T45.1X5A Adverse effect of antineoplastic and immunosuppressive drugs, initial encounter; Z79.82 Long term (current) use of aspirin; Z79.899 Other long term (current) drug therapy; Z87.891 Personal history of nicotine dependence; Z96.652 Presence of left artificial knee joint; Z99.81 Dependence on supplemental oxygen; I95.81 Postprocedural hypotension
CPT/HCPCS: 73560; 80053; 85014; 85018; 85027; 86850; 86900; 86901; 94150; C1776; C9290; J0131; J0690; J1100; J1580; J1885; J2250; J2270; J2370; J2405; J2710; J3010; J7030; J7120